=== PATIENT | male | born 1935 | race Caucasian/White ===

== ENCOUNTER → 2017-06-12 | Outpatient (CLI) | payer MEDICARE, OTHER ==
[~2017-06-12] MED LIST: ALBU90OI INH; ALBU90OI6 INH; ALLERCLEAR; ASPI325 PO; ASPI325B PO; ASPI81EC; Acidophilus La100 GM PO; BETA1; Bactrim Ds Tab1 EACH PO; CARV6.25 PO; CEPH500 PO; CITA20 PO; CLOP75 PO; CYCL10 PO; FISH1000 PO; FLUO10; FLUO10 PO; FLUO20; FOLI1 PO; GABA100 PO; GUAI600T33 PO; HYDACE5 PO; HYDHCL25 PO; LEVCAR25ER PO; LEVFLO500 PO; LEVO750 PO; MELO7.5 PO; METO50ER PO; METTREX2.5 PO; MOEHYD7.5; MOEX15 PO; NICO21TP TOP; NITR.6SL SL; OMEP20ER; OMEP20ER PO; OXYC5 PO; PANT20 PO; PRED20 PO; Percocet 5-3251 EACH PO; Prednisone20 MG PO; Prilosec Otc20 MG PO; SIMV40; SULTRIDS PO; TAMS.4ER; TAMS.4ER PO; VITAMIN D-32000 UNIT PO
[2017-06-12 13:15] LABS: BASOPHILS ABSOLUTE AUTO 0.08 K/mm3 (0.00-0.23); BASOPHILS PERCENT AUTO 1 % (0-2); EOSINOPHILS ABSOLUTE AUTO 0.08 K/mm3 (0.00-0.68); EOSINOPHILS PERCENT AUTO 1 % (0-6); Hemoglobin 16.1 g/dL (13.5-17.5); IMMATURE GRAN ABSOLUTE AUTO 0.06 K/mm3 (0.00-0.10); IMMATURE GRAN PERCENT AUTO 1 % (0-1); LYMPHOCYTES ABSOLUTE AUTO 2.01 K/mm3 (0.84-5.20); LYMPHOCYTES PERCENT AUTO 19 % (21-46); MONOCYTES ABSOLUTE AUTO 0.68 K/mm3 (0.16-1.47); MONOCYTES PERCENT AUTO 6 % (4-13); Mean Corpuscular HGB Conc 33.5 g/dL (31.5-36.5); Mean Corpuscular Volume 89 fL (80-100); Mean Platelet Volume 11.3 fL (9.1-12.4); NEUTROPHILS ABSOLUTE AUTO 7.83 K/mm3 (1.96-9.15); NEUTROPHILS PERCENT AUTO 73 % (41-73); Platelet Count 255 K/mm3 (150-400); RDW Coefficient Variation 14.1 % (11.7-14.2); RDW Standard Deviation 45.5 fL (35.1-46.3); Red Blood Cell Count 5.37 M/mm3 (4.30-5.90); White Blood Cell Count 10.74 K/mm3 (4.00-11.30)
== END | disposition home or self-care (01) ==
LOC: LAB EV 13:05
PROVIDERS: Physician Assistant
DX: M79.675 Pain in left toe(s) (principal)
CPT/HCPCS: 84550; 85025; 85651

== ENCOUNTER 2017-08-07 22:35 | Emergency (ER) | payer MEDICARE, OTHER ==
[~2017-08-07] VITALS: Ht 172.7 cm; Wt 85.3 kg
[~2017-08-07 22:35] MED LIST changes: -ALBU90OI INH; -CITA20 PO; -LEVO750 PO; -Prednisone20 MG PO
[2017-08-07] MEDS ORDERED: CITA20 PO (23:28)
[2017-08-07] MEDS ORDERED: GABA100 PO (23:28)
[2017-08-07] MEDS ORDERED: ALBU90OI INH (23:29)
[2018-05-02] MEDS ORDERED: Prednisone20 MG PO (16:35)
[2018-05-02] MEDS ORDERED: LEVO750 PO (16:35)
[2018-05-02] MEDS ORDERED: ALBU90OI INH (16:35)
== END 2017-08-07 23:50 | disposition home or self-care (01) ==
LOC: ER 22:35
DX: S01.01XA Laceration without foreign body of scalp, initial encounter (principal); F10.129 Alcohol abuse with intoxication, unspecified; Z23 Encounter for immunization; I25.2 Old myocardial infarction; I10 Essential (primary) hypertension; I25.10 Atherosclerotic heart disease of native coronary artery without angina pectoris; Z87.891 Personal history of nicotine dependence; Z79.899 Other long term (current) drug therapy; Z79.82 Long term (current) use of aspirin; W18.30XA Fall on same level, unspecified, initial encounter
CPT/HCPCS: 12002; 70450; 72125; 90471; 90714; 93005; 93010; 99284

== ENCOUNTER 2017-08-20 15:06 | Emergency (ER) | payer MEDICARE, OTHER ==
[~2017-08-20] VITALS: Ht 172.7 cm; Wt 83.9 kg
[~2017-08-20 15:06] MED LIST changes: +ALBU90OI INH; +CITA20 PO
== END 2017-08-20 16:05 | disposition home or self-care (01) ==
LOC: ER 15:06
DX: S01.01XD Laceration without foreign body of scalp, subsequent encounter (principal); I25.2 Old myocardial infarction; I10 Essential (primary) hypertension; I25.10 Atherosclerotic heart disease of native coronary artery without angina pectoris; I73.9 Peripheral vascular disease, unspecified; Z88.5 Allergy status to narcotic agent; Z79.82 Long term (current) use of aspirin; Z79.899 Other long term (current) drug therapy; Z98.890 Other specified postprocedural states; Z87.891 Personal history of nicotine dependence
CPT/HCPCS: 99281

== ENCOUNTER → 2017-08-24 | Outpatient (CLI) | payer MEDICARE, OTHER | LOC: LAB 17:47 → LAB SHORT 17:47 | DX: R21 Rash and other nonspecific skin eruption (principal) | CPT/HCPCS: 87070; 87205 ==

== ENCOUNTER → 2018-09-26 | Outpatient (CLI) | payer MEDICARE, OTHER ==
[~2018-09-26] MED LIST changes: +LEVO750 PO; +Prednisone20 MG PO
[2018-09-26 16:34] LABS: BASOPHILS ABSOLUTE AUTO 0.05 K/mm3 (0.00-0.23); BASOPHILS PERCENT AUTO 0 % (0-2); EOSINOPHILS PERCENT AUTO 1 % (0-6); Hematocrit 51.6 % (37.0-53.0); IMMATURE GRAN ABSOLUTE AUTO 0.11 K/mm3 (0.00-0.10); IMMATURE GRAN PERCENT AUTO 1 % (0-1); LYMPHOCYTES ABSOLUTE AUTO 2.13 K/mm3 (0.84-5.20); LYMPHOCYTES PERCENT AUTO 16 % (21-46); MONOCYTES ABSOLUTE AUTO 1.28 K/mm3 (0.16-1.47); MONOCYTES PERCENT AUTO 10 % (4-13); Mean Corpuscular HGB 29.5 pg (26.0-34.0); Mean Corpuscular HGB Conc 32.9 g/dL (31.5-36.5); Mean Corpuscular Volume 90 fL (80-100); Mean Platelet Volume 10.7 fL (9.1-12.4); NEUTROPHILS ABSOLUTE AUTO 9.47 K/mm3 (1.96-9.15); NEUTROPHILS PERCENT AUTO 72 % (41-73); Platelet Count 282 K/mm3 (150-400); RDW Standard Deviation 59.8 fL (35.1-46.3); Red Blood Cell Count 5.76 M/mm3 (4.30-5.90); White Blood Cell Count 13.14 K/mm3 (4.00-11.30)
[2018-09-26 16:42] LABS: Alanine Aminotransfer (ALT/SGP 11 U/L (12-78); Albumin, Blood 3.7 g/dL (3.4-5.0); Albumin/Globulin Ratio 0.8 (0.8-1.8); Alk Phos 77 U/L (40-126); Anion Gap 10 mmol/L (6-16); Aspartate Aminotrans (AST/SGOT 16 U/L (12-37); Bilirubin, Total 1.3 mg/dL (0.1-1.0); Blood Urea Nitrogen 11 mg/dL (8-24); Bun/Creatinine Ratio 12.6 (12.0-20.0); CO2, Blood 29 mmol/L (21-32); Calcium, Blood 9.2 mg/dL (8.5-10.1); Chloride, Blood 99 mmol/L (98-108); Creatinine, Blood 0.87 mg/dL (0.60-1.20); Globulin, Blood 4.5 g/dL (2.2-4.0); Glomerular Filtration Rate >60 (60-); Glucose, Blood 109 mg/dL (70-99); Sodium, Blood 138 mmol/L (136-145); Total Protein, Blood 8.2 g/dL (6.4-8.2); Uric Acid, Blood 6.7 mg/dL (3.5-7.2)
== END | disposition home or self-care (01) ==
LOC: LAB SHORT 16:27 → LAB EV 16:27
PROVIDERS: General Practice
DX: M25.532 Pain in left wrist (principal)
CPT/HCPCS: 80053; 84550; 85025; 85651

== ENCOUNTER 2019-03-10 11:16 | Day surgery (SDC) | payer MEDICARE, OTHER ==
[~2019-03-10] VITALS: Ht 172.7 cm; Wt 86.0 kg
[~2019-03-10 11:16] MED LIST changes: -LEVCAR25ER PO; +Sinemet 25-1001 EACH PO
[2019-03-10] MEDS ORDERED: DULO30 PO (12:42)
[2019-03-10] MEDS ORDERED: ALLO100 PO (12:42)
[2019-03-10] MEDS ORDERED: TIOT18 INH (12:43)
--- NOTE | 2019-03-10 18:00 | NUR ---
SHIFT SUMMARY PT IS S/P PACEMAKER INSERTION TODAY. ARRIVED TO SURG FLOOR APPROX 1630. HAS NOT COMPLAINED OF PAIN SINCE. PT A/O X4, TOLERATING FOOD AND FLUIDS. TELE IN PLACE. SURGICAL SITE HAS GAUZE/TEGADERM DRESSING WHICH HAS MINIMAL DRAINAGE, IS CLEAN AND INTACT. REPORTS NO CHEST PAIN OR SOB.
--- NOTE | 2019-03-11 06:13 | NUR ---
SHIFT SUMMARY: [place] HAD A PACEMAKER PLACED YESTERDAY. PER THE PAPER DOCUMENTATION, THE LOW THRESHOLD IS SET AT 50 BPM. HE DENIES ANY CHEST PAIN/SOB. HE DID COMPLAIN OF 4/10 PAIN AT THE INSERTION SITE FOR WHICH TYLENOL WAS EFFECTIVE. HE IS ON TELEMETRY. CHEST X-RAY COMPLETED THIS MORNING. HE IS ABLE TO MAKE HIS NEEDS KNOWN. HE AMBULATES WITH STANDBY ASSIST. 20 G IN L AC PATENT. HE USES HIS CALL LIGHT APPROPRIATELY. HE IS LYING IN BED WITH HIS CALL LIGHT IN REACH.
[2019-03-11] MEDS ORDERED: WARF2.5 PO (12:33)
[2019-03-11] MEDS ORDERED: WARF5 PO (12:33)
--- NOTE | 2019-03-11 13:23 | NUR ---
DISCHARGE SUMMARY PT A&OX4, WALKED OFF FLOOR WITH , WITH ALL PERSONAL POSSESSIONS INCLUDING DC PACKET. DC INSTRUCTIONS PROVIDED. PT AND REP UNDERSTANDING THOSE INSTRUCTIONS INCLUDING NO TUB BATHS, OK TO SHOWER - DO NOT WET BANDAGE, PACEMAKER IMPLANT PT INSTRUCTIONS: NO LIFTING ARM OVERHEAD, WEAR SLING AT ALL TIMES, NWB, NO DRIVING/WORKING, FU APPTS, RESTART COUMADIN ON THURSDAY (3 DAYS). IV DC'D.
== END 2019-03-11 12:54 | disposition home or self-care (01) ==
LOC: MHTC 11:16 → SURS 14:03 → MHTC 03-11 12:54
DX: I49.5 Sick sinus syndrome (principal); I48.91 Unspecified atrial fibrillation; J44.9 Chronic obstructive pulmonary disease, unspecified; I10 Essential (primary) hypertension; G20 Parkinson's disease; I73.9 Peripheral vascular disease, unspecified; I25.10 Atherosclerotic heart disease of native coronary artery without angina pectoris; E78.00 Pure hypercholesterolemia, unspecified; Z79.899 Other long term (current) drug therapy; Z95.5 Presence of coronary angioplasty implant and graft; Z88.3 Allergy status to other anti-infective agents; Z88.5 Allergy status to narcotic agent; Z79.01 Long term (current) use of anticoagulants; Z87.891 Personal history of nicotine dependence
CPT/HCPCS: 33207; 71045; 71046; 94640; 94760; 99152; 99153; A9270; C1786; C1898; J0690; J1644; J2250; J3010; J7040

== ENCOUNTER 2020-04-04 06:27 | Day surgery (SDC) | payer MEDICARE, OTHER ==
[~2020-04-04] VITALS: Ht 172.7 cm; Wt 91.0 kg
[~2020-04-04 06:27] MED LIST changes: +ALLO100 PO; +AMLO5 PO; +ASPI81CH PO; +CARBLEV250 PO; +DULO30 PO; +FISH OIL 1,2001 EAC7 PO; +ISOSORBIDE MONO30 MG PO; +Nitrostat0.3 MG SL; +TIOT18 INH; +WARF2.5 PO; +WARF5 PO
[2020-04-04] MEDS ORDERED: CARBIDOPA-LEVO1 EA21 PO (07:24)
[2020-04-04] MEDS ORDERED: CARBIDOPA-LEVO1 EA17 PO (07:26)
[2020-04-04] MEDS ORDERED: ATOR20 PO (07:28)
[2020-04-04] MEDS ORDERED: TIOT18 INH (07:29)
--- NOTE | 2020-04-04 10:49 | NUR ---
patient returned to recovery room from field laborer. A&O. Right radial site soft and nontender with wrist board in place. patient eating breakfast with minimal assist from .
--- NOTE | 2020-04-04 12:30 | NUR ---
REMAINDER 8 CC AIR REMOVED FROM TR BAND BY Alok THOMAS RN. NO BLEEDING AT SITE. TR BAND TO ROOM AIR.
--- NOTE | 2020-04-04 13:26 | NUR ---
PATIENT DRESSED WITH ASSISTENCE AND TWO PERSON TRANSFERR TO WHEELCHAIR.
--- NOTE | 2020-04-04 14:11 | NUR ---
PATIENT DICHARGED HOME IN CARE OF . A&OJerome CROCKER RADIAL SITE TR BAND REMOVED SITE SOFT AND NONTENDER. CLOTH DOT DRESSING PLACED TO RADIAL SITE. IV DECED WITH CATHETER INTACT. PATIENT AND VERBALIZED UNDERSTANDING OF SITE CARE AND PRECAUTIONS, WILL ALL DOCTOR IF ANY QUESTION UPON ARRIVING HOME. DR HUNTER OFFICE WILL CALL FOR FOLLOW UP APPOINTMENT. MEDICATION CHANGE REVIEWED WITH . PATIENT DISCHARGED VIA WHEELCHAIR BY SELF, DRIVING
== END 2020-04-04 14:10 | disposition home or self-care (01) ==
LOC: MHTC 06:27
PROC: B201YZZ Plain Radiography of Multiple Coronary Arteries using Other Contrast (ICD-10-PCS; principal; 2020-04-04)
PROC: 4A023N7 Measurement of Cardiac Sampling and Pressure, Left Heart, Percutaneous Approach (ICD-10-PCS; principal; 2020-04-04)
DX: I25.10 Atherosclerotic heart disease of native coronary artery without angina pectoris (principal); I10 Essential (primary) hypertension; Z88.8 Allergy status to other drugs, medicaments and biological substances; Z95.5 Presence of coronary angioplasty implant and graft; Z87.891 Personal history of nicotine dependence; E78.00 Pure hypercholesterolemia, unspecified; J44.9 Chronic obstructive pulmonary disease, unspecified; G20 Parkinson's disease; Z79.01 Long term (current) use of anticoagulants; Z79.899 Other long term (current) drug therapy; Z88.5 Allergy status to narcotic agent
CPT/HCPCS: 76937; 85347; 93454; 93571; 93572; 99152; 99153; C1725; C1769; C1887; C1894; J1644; J2250; J3010; J7030; J7050; Q9967

== ENCOUNTER 2020-06-12 05:58 | Day surgery (SDC) | payer MEDICARE, OTHER ==
[~2020-06-12] VITALS: Ht 170.2 cm; Wt 93.2 kg
[~2020-06-12 05:58] MED LIST changes: +ATOR20 PO; +CARBIDOPA-LEVO1 EA17 PO; +CARBIDOPA-LEVO1 EA21 PO; -Sinemet 25-1001 EACH PO; -VITAMIN D-32000 UNIT PO; +Vitamin D2000 UNIT PO
--- NOTE | 2020-06-12 10:49 | NUR ---
PATIENT RETURNED FROM THE CATHLAB, UPON UNDRAPPING IN THE CATHLAB, PATIENT WAS NOTED TO HAVE WELPS TO HIS ENTIRE UPPER BODY/TRUNK/GROIN AREAS. NO C/O ITICHING. NO WHEEZING NOTED. CONTINUED NASAL CANNULA AT 3LPM. SATURATION 98-100%. VVS. NS INFUSING AT 125 ML/HR. PATIENT PLACED ON THE MONITOR AND HOB FLAT, BED IN REVERSE TRENDELENBERG. AWARE OF WELPS AND SOLUCORTEF AND BENADRYL WAS GIVEN BEFORE LEAVING THE CATHLAB. SBAR TO DARNELL MONTANO AND CONTINUED TO MONITOR PATIENT FROM THE LAB INTO RECOVERY.
--- NOTE | 2020-06-12 11:15 | NUR ---
AT THE BEDSIDE, UPDATED BY RN
--- NOTE | 2020-06-12 11:34 | NUR ---
PATIENT C/O LEFT HIP SORENESS. STATED THAT THIS IS HIS BAD HIP AND ALWAYS HURTS HIM. PATIENT ADJUSTED FOR COMFORT BUT UNABLE TO SIT UP AT THIS TIME.
--- NOTE | 2020-06-12 12:07 | NUR ---
URINAL PLACED PER PATIENT REQUEST, LUNCH TRAY ORDERED. WELPS ON BODY ARE LIGHTING IN COLOR AND SIZE. STILL PRESENT BUT DIMINISHING.
--- NOTE | 2020-06-12 12:21 | NUR ---
LUNCH SERVED. PATIENT SITTING 45 DEGREES UP, DUE TO BAD HIP. AND STILL TRYING TO USE URINAL. AT THE BEDSIDE.
--- NOTE | 2020-06-12 12:30 | NUR ---
PATIENT TR BAND IN PLACE AND ATTEMPTED TO RELEASE A SMALL AMOUNT OF AIR, PUNCTURE SITE IS HIGH TOWARDS THE THUMB. BLEEDING NOTED. REPLACED ALL THE AIR PACK IN THE TR BAND.
--- NOTE | 2020-06-12 13:03 | NUR ---
PATIENT ASSISTED UP TO THE RECLINER CHAIR TO EASE THE PAIN IN HIS HIP. GAIT UPSTEADY. TWO PERSON ASSIST. REMAINS AT THE BEDSIDE.
--- NOTE | 2020-06-12 13:08 | NUR ---
BEGAN RELEASING AIR FROM THE TR BAND, NO BLEEDING NOTED.
--- NOTE | 2020-06-12 13:14 | NUR ---
DR. QUINTEROS AT THE BEDSIDE. SPOKE WITH AND PATIENT.
--- NOTE | 2020-06-12 13:29 | NUR ---
CONTINUE TO REMOVED AIR FROM THE TR BAND. NO BLEEDING NOTED.
--- NOTE | 2020-06-12 14:03 | NUR ---
TR BAND FULLY DEFLATED FROM LEFT WRIST, REMAINS ON WITH ARM BOARD FOR SUPPORT. PT APPEARS DROWSY, RESPONDS TO VERBAL STIMULI, DENIES ANY NEEDS AT THIS TIME. AT BEDSIDE. PT UP IN RECLINER CHAIR, LEFT GROIN SITE SOFT NON TENDER WITH NO ACTIVE BLEEDING OR OOZING NOTED. WILL CONTINUE TO MONITOR.
--- NOTE | 2020-06-12 15:18 | NUR ---
PATIENT UP AND DRESSED WITH ASSIST. PIV REMOVED FROM THE RIGHT AC AND PRESSURE DRESSING APPLIED. CATHETER TIP INTACT. PATIENT OFF THE MONITOR. TR BAND REMOVED, LEFT RADIAL SITE CLEANED AND DRIED. CLOTH DOT APPLIED. WHITE BOARD APPLIED TO PREVENT PATIENT FROM BENDING WRIST. REVIEWED ALL DISCAHRGE INSTRUCTIONS WITH PATIENT AND . PATIENT VERY MIDDLETOWN AND UNABLE TOHEAR MUCH OF THE INSTRUCTIONS. COPIES GIVEN OF ALL INSTRUCTIONS. WILL REMOVE DRESSING TO BOTH GROINS TOMORROW AND SHOWER ONLY FOR THE NEXT WEEK. WILL MONITOR SITES (GROIN AND WRIST) FOR ANY SIGNS OF INFECTION AND REPORT ANY CHANGES TO DR. SIMS OFFICE. THE PATIENT IS DUE TO RETURN FOR A FOLLOW UP PROCEDURE ON 2020 @ 4164. VERBALIZES UNDERSTANDING AND NO FURTHER QUESTIONS. WELPS ALMOST FADED. WILL CONTINUE TO MONITOR AND REPORT ANY CHANGES TO MD'S OFFICE. PATIENT TO WHEELCHAIR. ALL BELONGINGS GATHERED AND PATIENT WHEELCHAIRED TO THE CAR AND ASSISTED INTO THE CAR. DISCHARGED HOME.
[2020-06-25] MEDS ORDERED: MOEX15 PO (12:17)
[2020-06-25] MEDS ORDERED: AMLO5 PO (12:20)
== END 2020-06-12 14:00 | disposition home or self-care (01) ==
LOC: MHTC 05:58
DX: I70.213 Atherosclerosis of native arteries of extremities with intermittent claudication, bilateral legs (principal); I25.10 Atherosclerotic heart disease of native coronary artery without angina pectoris; I48.91 Unspecified atrial fibrillation; I10 Essential (primary) hypertension; J44.9 Chronic obstructive pulmonary disease, unspecified; G47.30 Sleep apnea, unspecified; Z88.5 Allergy status to narcotic agent; Z88.8 Allergy status to other drugs, medicaments and biological substances; Z91.041 Radiographic dye allergy status; Z79.899 Other long term (current) drug therapy; Z20.822 Contact with and (suspected) exposure to COVID-19
CPT/HCPCS: 37220; 37221; 37223; 75625; 75716; 75774; 76937; 99152; 99153; C1725; C1760; C1769; C1874; C1876; C1887; C1894; J1200; J1644; J1720; J2250; J3010; J7030; J7050; Q9967

== ENCOUNTER 2020-06-26 08:23 | Day surgery (SDC) | payer MEDICARE, OTHER ==
[~2020-06-26] VITALS: Ht 172.7 cm; Wt 91.0 kg
[2020-06-26 09:08] LABS: Hematocrit 42.6 % (37.0-53.0); Hemoglobin 13.6 g/dL (13.5-17.5); Mean Corpuscular HGB 29.6 pg (26.0-34.0); Mean Corpuscular HGB Conc 31.9 g/dL (31.5-36.5); Mean Corpuscular Volume 93 fL (80-100); Mean Platelet Volume 10.2 fL (9.1-12.4); Platelet Count 416 K/mm3 (150-400); RDW Coefficient Variation 14.6 % (11.7-14.2); RDW Standard Deviation 49.7 fL (35.1-46.3); Red Blood Cell Count 4.59 M/mm3 (4.30-5.90); White Blood Cell Count 12.37 K/mm3 (4.00-11.30)
[2020-06-26] MEDS ORDERED: NITR.4SL SL (09:14)
[2020-06-26] MEDS ORDERED: ISOSORBIDE MONO30 MG PO (09:18)
[2020-06-26] MEDS ORDERED: SPIRIVA RESPIMAT4 G3 INH (09:19)
[2020-06-26] MEDS ORDERED: ALLERCLEAR10 MG PO (09:20)
[2020-06-26 09:24] LABS: International Normalized Ratio 1.67; Prothrombin Time Results 17.4 Sec (9.7-11.5)
[2020-06-26 09:27] LABS: Anion Gap 7 mmol/L (6-16); Blood Urea Nitrogen 21 mg/dL (8-24); Bun/Creatinine Ratio 22.6 (12.0-20.0); CO2, Blood 24 mmol/L (21-32); Calcium, Blood 9.4 mg/dL (8.5-10.1); Chloride, Blood 110 mmol/L (98-108); Creatinine, Blood 0.93 mg/dL (0.60-1.20); Glomerular Filtration Rate >60 (60-); Glucose, Blood 94 mg/dL (70-99); Potassium, Blood 4.3 mmol/L (3.5-5.5); Sodium, Blood 141 mmol/L (136-145)
--- NOTE | 2020-06-26 13:17 | NUR ---
PT RETURNED TO RECOVERY ROOM IN BED. RIGHT PEDAL SITE SOFT NON-TENDER WITH NO HEMATOMA, NO BLEEDING AND INTACT DRESSING WITH SUBHASH PATCH IN PLACE. PT EATING LUNCH. SCATTERED HIVES NOTED BILAT HIPS; PT'S SP02 97% ON RA WITH NO RESPIRATORY DISTRESS. CALL LIGHT IN REACH.
--- NOTE | 2020-06-26 13:59 | NUR ---
PT'S IN ROOM. PT DRINKING COFFEE AND ATE LUNCH.
--- NOTE | 2020-06-26 14:38 | NUR ---
NO CHANGES TO R PEDAL SITE. DR QUINTEROS IN ROOM TO SEE PT AND HIS . DISCHARGE INSTRUCTIONS REVIEWED ALL QUESTIONS ANSWERED. 20 G IV REMOVED FROM RIGHT AC WITH INTACT CANNULA. PT ESCORTED OUT VIA WHEELCHAIR ESCORT.
== END 2020-06-26 14:45 | disposition home or self-care (01) ==
LOC: MHTC 08:23
PROVIDERS: Radiology Diagnostic Radiology
DX: I70.213 Atherosclerosis of native arteries of extremities with intermittent claudication, bilateral legs (principal); G20 Parkinson's disease; I10 Essential (primary) hypertension; J44.9 Chronic obstructive pulmonary disease, unspecified; Z88.5 Allergy status to narcotic agent; Z88.8 Allergy status to other drugs, medicaments and biological substances; Z79.01 Long term (current) use of anticoagulants
CPT/HCPCS: 37227; 75710; 75774; 76937; 80048; 85027; 85610; 99152; 99153; C1714; C1725; C1769; C1874; C1876; C1887; C1894; C2623; J1200; J1644; J1720; J2250; J3010; J7030; J7050; Q9967

== ENCOUNTER 2020-08-14 10:16 | Day surgery (SDC) | payer MEDICARE, OTHER ==
[~2020-08-14] VITALS: Ht 172.7 cm; Wt 86.8 kg
[~2020-08-14 10:16] MED LIST changes: +ALLERCLEAR10 MG PO; +NITR.4SL SL; +SPIRIVA RESPIMAT4 G3 INH
--- NOTE | 2020-08-14 15:31 | NUR ---
PATIENT WITH AT THE BEDSIDE. DR. QUINTEROS AT THE BEDSIDE TO SPEAK WITH THE PATIENT AND . UPDATED ON ALL RESULTS OF THE PROCEDURE AND SPOKE ABOUT A WALKING PROGRAM. INCREASING 10 FEET PER DAY.
--- NOTE | 2020-08-14 15:32 | NUR ---
1440 PATIENT RETURNED TO THE CATHLAB FROM PROCEDURE. RIGHT GROIN CHECKED WITH TWO RN'S, DRESSING CDI. MONITOR APPLIED. CALL LIGHT IN REACH. CALLED AND ON HER WAY BACK TO THE BEDSIDE.
--- NOTE | 2020-08-14 16:30 | NUR ---
1630 PATIENT SAT UP ON THE SIDE OF THE BED. PIV REMOVED. PRESSURE DRESSING APPLIED. MONITOR OFF AFTER LAST NIBP TAKEN. AT THE BEDSIDE AND ASSISTED PATIENT DRESSING. ALL BELONGINGS GATHERED AND RETAINED BY PATIENT.
--- NOTE | 2020-08-14 16:49 | NUR ---
REVIEWED DISCHARGE INSTRUCTIONS AND ANSWERED ALL QUESTIONS FROM PATIENT AND . COPIES OF INSTRUCTIONS GIVEN. PATIENT WALKING IN THE RECOVERY ROOM. TO THE RESTROOM AND THEN GROIN SITE CHECKED AGAIN. SOFT, NO HEMATOMA, NO BLEEDING NOTED. DISCHARGE HOME VIA WHEELCHAIR. DRIVING.
== END 2020-08-14 16:53 | disposition home or self-care (01) ==
LOC: MHTC 10:16
DX: I70.213 Atherosclerosis of native arteries of extremities with intermittent claudication, bilateral legs (principal); I25.10 Atherosclerotic heart disease of native coronary artery without angina pectoris; I48.91 Unspecified atrial fibrillation; J44.9 Chronic obstructive pulmonary disease, unspecified; E78.00 Pure hypercholesterolemia, unspecified; I10 Essential (primary) hypertension; F17.200 Nicotine dependence, unspecified, uncomplicated; G20 Parkinson's disease; Z79.01 Long term (current) use of anticoagulants
CPT/HCPCS: 75716; 75774; 99152; 99153; C1757; C1760; C1769; C1887; C1894; C2623; C9764; J1200; J1644; J1720; J2250; J3010; J7030; J7050; Q9967

== ENCOUNTER → 2021-01-15 | Outpatient (CLI) | payer MEDICARE, OTHER | LOC: LAB 11:55 → LAB SHORT 11:55 | DX: D48.5 Neoplasm of uncertain behavior of skin (principal); L30.8 Other specified dermatitis; D71 Functional disorders of polymorphonuclear neutrophils; Z88.5 Allergy status to narcotic agent; Z88.8 Allergy status to other drugs, medicaments and biological substances | CPT/HCPCS: 88304; 88312 ==

== ENCOUNTER → 2021-02-07 | Outpatient (CLI) | payer MEDICARE, OTHER ==
[2021-02-07 19:27] LABS: BASOPHILS ABSOLUTE AUTO 0.05 K/mm3 (0.00-0.23); BASOPHILS PERCENT AUTO 1 % (0-2); EOSINOPHILS ABSOLUTE AUTO 0.35 K/mm3 (0.00-0.68); EOSINOPHILS PERCENT AUTO 4 % (0-6); Hematocrit 45.9 % (37.0-53.0); Hemoglobin 15.2 g/dL (13.5-17.5); IMMATURE GRAN ABSOLUTE AUTO 0.04 K/mm3 (0.00-0.10); IMMATURE GRAN PERCENT AUTO 1 % (0-1); LYMPHOCYTES ABSOLUTE AUTO 2.33 K/mm3 (0.84-5.20); LYMPHOCYTES PERCENT AUTO 27 % (21-46); MONOCYTES PERCENT AUTO 11 % (4-13); Mean Corpuscular HGB 30.6 pg (26.0-34.0); Mean Corpuscular HGB Conc 33.1 g/dL (31.5-36.5); Mean Corpuscular Volume 93 fL (80-100); NEUTROPHILS ABSOLUTE AUTO 4.89 K/mm3 (1.96-9.15); NEUTROPHILS PERCENT AUTO 57 % (41-73); Platelet Count 258 K/mm3 (150-400); RDW Coefficient Variation 13.6 % (11.7-14.2); RDW Standard Deviation 45.9 fL (35.1-46.3); Red Blood Cell Count 4.96 M/mm3 (4.30-5.90); White Blood Cell Count 8.56 K/mm3 (4.00-11.30)
[2021-02-07 19:32] LABS: Anion Gap 12 mmol/L (6-16); Blood Urea Nitrogen 20 mg/dL (8-24); Bun/Creatinine Ratio 17.9 (12.0-20.0); CO2, Blood 26 mmol/L (21-32); Calcium, Blood 8.8 mg/dL (8.5-10.1); Chloride, Blood 105 mmol/L (98-108); Creatinine, Blood 1.12 mg/dL (0.60-1.20); Glomerular Filtration Rate >60 (60-); Glucose, Blood 90 mg/dL (70-99); Sodium, Blood 143 mmol/L (136-145)
== END | disposition home or self-care (01) ==
LOC: LAB SHORT 19:23
PROVIDERS: Physician Assistant Surgical
DX: R53.83 Other fatigue (principal)
CPT/HCPCS: 80048; 85025

== ENCOUNTER 2021-03-18 18:08 | Observation (INO) | payer MEDICARE, OTHER ==
[~2021-03-18] VITALS: Ht 172.7 cm; Wt 88.4 kg
[~2021-03-18 18:08] MED LIST changes: -ALLO100 PO; -ATOR20 PO; -CARBIDOPA-LEVO1 EA21 PO; -DULO30 PO; -FISH OIL 1,2001 EAC7 PO; -Prilosec Otc20 MG PO; -Vitamin D2000 UNIT PO; -WARF5 PO
[2021-03-18] MEDS ORDERED: HYDR1TAB94 PO (18:26)
[2021-03-18 19:02] LABS: BASOPHILS ABSOLUTE AUTO 0.05 K/mm3 (0.00-0.23); BASOPHILS PERCENT AUTO 0 % (0-2); EOSINOPHILS ABSOLUTE AUTO 0.24 K/mm3 (0.00-0.68); EOSINOPHILS PERCENT AUTO 2 % (0-6); Hematocrit 47.4 % (37.0-53.0); Hemoglobin 15.3 g/dL (13.5-17.5); IMMATURE GRAN PERCENT AUTO 1 % (0-1); LYMPHOCYTES ABSOLUTE AUTO 1.97 K/mm3 (0.84-5.20); LYMPHOCYTES PERCENT AUTO 14 % (21-46); MONOCYTES ABSOLUTE AUTO 1.43 K/mm3 (0.16-1.47); MONOCYTES PERCENT AUTO 10 % (4-13); Mean Corpuscular HGB 30.1 pg (26.0-34.0); Mean Corpuscular HGB Conc 32.3 g/dL (31.5-36.5); Mean Corpuscular Volume 93 fL (80-100); Mean Platelet Volume 11.3 fL (9.1-12.4); NEUTROPHILS ABSOLUTE AUTO 10.38 K/mm3 (1.96-9.15); NEUTROPHILS PERCENT AUTO 73 % (41-73); Platelet Count 252 K/mm3 (150-400); RDW Coefficient Variation 13.9 % (11.7-14.2); RDW Standard Deviation 48.1 fL (35.1-46.3); Red Blood Cell Count 5.08 M/mm3 (4.30-5.90); White Blood Cell Count 14.17 K/mm3 (4.00-11.30)
[2021-03-18 19:10] LABS: Alanine Aminotransfer (ALT/SGP 20 U/L (12-78); Albumin, Blood 3.3 g/dL (3.4-5.0); Albumin/Globulin Ratio 0.9 (0.8-1.8); Alk Phos 78 U/L (50-136); Anion Gap 2 mmol/L (6-16); Aspartate Aminotrans (AST/SGOT 18 U/L (12-37); Bilirubin, Total 0.6 mg/dL (0.1-1.0); Blood Urea Nitrogen 25 mg/dL (8-24); Bun/Creatinine Ratio 19.4 (12.0-20.0); CO2, Blood 29 mmol/L (21-32); Calcium, Blood 9.1 mg/dL (8.5-10.1); Chloride, Blood 109 mmol/L (98-108); Creatinine, Blood 1.29 mg/dL (0.60-1.20); Globulin, Blood 3.8 g/dL (2.2-4.0); Glomerular Filtration Rate 53 (60-); Glucose, Blood 97 mg/dL (70-99); Potassium, Blood 4.4 mmol/L (3.5-5.5); Sodium, Blood 140 mmol/L (136-145); Total Protein, Blood 7.1 g/dL (6.4-8.2); Troponin I <0.015 ng/mL (0.000-0.040)
[2021-03-18 19:25] LABS: International Normalized Ratio 2.8; Prothrombin Time Results 27.5 Sec (9.7-11.5)
[2021-03-18] MEDS ORDERED: MOEX15 PO (20:19)
[2021-03-18] MEDS ORDERED: DULO60 PO (20:20)
[2021-03-18] MEDS ORDERED: ATOR40TA PO (20:21)
[2021-03-18] MEDS ORDERED: WARF5 PO (20:22)
[2021-03-18] MEDS ORDERED: ALLO100 PO (20:31)
[2021-03-18] MEDS ORDERED: CARBIDOPA-LEVO1 EA21 PO (20:33)
[2021-03-18] MEDS ORDERED: CARBIDOPA-LEVO1 EA17 PO (20:34)
[2021-03-18] MEDS ORDERED: Prilosec Otc20 MG PO (20:50)
[2021-03-18] MEDS ORDERED: Lopressor 50 mg50 MG PO (20:51)
[2021-03-18] MEDS ORDERED: Vitamin D2000 UNIT PO (20:52)
[2021-03-18] MEDS ORDERED: FISH OIL 1,2001 EAC7 PO (20:53)
[2021-03-18] MEDS ORDERED: PRESERVISION A1 EAC1 PO (20:54)
[2021-03-18] MEDS ORDERED: CENTRUM SILVER1 EAC2 PO (20:54)
[2021-03-18] MEDS ORDERED: ZYRTEC10 M2 PO (20:56)
[2021-03-19 06:20] LABS: BASOPHILS ABSOLUTE AUTO 0.04 K/mm3 (0.00-0.23); BASOPHILS PERCENT AUTO 1 % (0-2); EOSINOPHILS ABSOLUTE AUTO 0.32 K/mm3 (0.00-0.68); EOSINOPHILS PERCENT AUTO 4 % (0-6); Hematocrit 44.5 % (37.0-53.0); Hemoglobin 14.6 g/dL (13.5-17.5); IMMATURE GRAN ABSOLUTE AUTO 0.07 K/mm3 (0.00-0.10); IMMATURE GRAN PERCENT AUTO 1 % (0-1); LYMPHOCYTES ABSOLUTE AUTO 2.18 K/mm3 (0.84-5.20); LYMPHOCYTES PERCENT AUTO 28 % (21-46); MONOCYTES ABSOLUTE AUTO 0.86 K/mm3 (0.16-1.47); MONOCYTES PERCENT AUTO 11 % (4-13); Mean Corpuscular HGB 30.4 pg (26.0-34.0); Mean Corpuscular HGB Conc 32.8 g/dL (31.5-36.5); Mean Corpuscular Volume 93 fL (80-100); NEUTROPHILS ABSOLUTE AUTO 4.42 K/mm3 (1.96-9.15); NEUTROPHILS PERCENT AUTO 56 % (41-73); Platelet Count 219 K/mm3 (150-400); RDW Coefficient Variation 14.2 % (11.7-14.2); RDW Standard Deviation 47.8 fL (35.1-46.3); Red Blood Cell Count 4.81 M/mm3 (4.30-5.90); White Blood Cell Count 7.89 K/mm3 (4.00-11.30)
[2021-03-19 06:36] LABS: International Normalized Ratio 2.39
[2021-03-19 06:40] LABS: Prothrombin Time Results 23.7 Sec (9.7-11.5)
[2021-03-19 06:44] LABS: Anion Gap 7 mmol/L (6-16); Blood Urea Nitrogen 20 mg/dL (8-24); Bun/Creatinine Ratio 22.4 (12.0-20.0); CO2, Blood 25 mmol/L (21-32); Calcium, Blood 9.2 mg/dL (8.5-10.1); Chloride, Blood 110 mmol/L (98-108); Creatinine, Blood 0.89 mg/dL (0.60-1.20); Glomerular Filtration Rate >60 (60-); Glucose, Blood 104 mg/dL (70-99); Potassium, Blood 3.4 mmol/L (3.5-5.5); Sodium, Blood 142 mmol/L (136-145)
[2021-03-19 06:45] LABS: Magnesium, Blood 0.8 mg/dL (1.6-2.4)
[2021-03-20 06:04] LABS: BASOPHILS ABSOLUTE AUTO 0.05 K/mm3 (0.00-0.23); BASOPHILS PERCENT AUTO 0 % (0-2); EOSINOPHILS ABSOLUTE AUTO 0.27 K/mm3 (0.00-0.68); EOSINOPHILS PERCENT AUTO 2 % (0-6); Hematocrit 46.1 % (37.0-53.0); Hemoglobin 15.2 g/dL (13.5-17.5); IMMATURE GRAN PERCENT AUTO 1 % (0-1); LYMPHOCYTES ABSOLUTE AUTO 2.01 K/mm3 (0.84-5.20); LYMPHOCYTES PERCENT AUTO 12 % (21-46); MONOCYTES ABSOLUTE AUTO 1.45 K/mm3 (0.16-1.47); MONOCYTES PERCENT AUTO 9 % (4-13); Mean Corpuscular HGB 30.2 pg (26.0-34.0); Mean Corpuscular Volume 92 fL (80-100); NEUTROPHILS PERCENT AUTO 77 % (41-73); Platelet Count 253 K/mm3 (150-400); RDW Coefficient Variation 14.1 % (11.7-14.2); RDW Standard Deviation 47.6 fL (35.1-46.3); Red Blood Cell Count 5.04 M/mm3 (4.30-5.90); White Blood Cell Count 16.58 K/mm3 (4.00-11.30)
[2021-03-20 06:18] LABS: International Normalized Ratio 2.29; Prothrombin Time Results 22.8 Sec (9.7-11.5)
[2021-03-20 06:23] LABS: Alanine Aminotransfer (ALT/SGP 10 U/L (12-78); Albumin, Blood 2.9 g/dL (3.4-5.0); Albumin/Globulin Ratio 0.7 (0.8-1.8); Alk Phos 70 U/L (50-136); Anion Gap 4 mmol/L (6-16); Aspartate Aminotrans (AST/SGOT 14 U/L (12-37); Bilirubin, Total 1.3 mg/dL (0.1-1.0); Blood Urea Nitrogen 17 mg/dL (8-24); Bun/Creatinine Ratio 19.7 (12.0-20.0); CO2, Blood 25 mmol/L (21-32); Calcium, Blood 9.3 mg/dL (8.5-10.1); Chloride, Blood 107 mmol/L (98-108); Creatinine, Blood 0.86 mg/dL (0.60-1.20); Globulin, Blood 3.9 g/dL (2.2-4.0); Glomerular Filtration Rate >60 (60-); Glucose, Blood 120 mg/dL (70-99); Phosphorus, Blood 2.1 mg/dL (2.5-4.9); Sodium, Blood 136 mmol/L (136-145); Total Protein, Blood 6.8 g/dL (6.4-8.2)
[2021-03-20] MEDS ORDERED: MAGNESIUM OXID500 MG PO (15:59)
== END 2021-03-20 16:30 | disposition home or self-care (01) ==
LOC: ER 18:08 → MEDS 18:09
PROVIDERS: Hospitalist; Student in an Organized Health Care Education/Training Program; ADMIT Internal Medicine
DX: R07.89 Other chest pain (principal); I25.10 Atherosclerotic heart disease of native coronary artery without angina pectoris; I73.9 Peripheral vascular disease, unspecified; I25.2 Old myocardial infarction; I10 Essential (primary) hypertension; J44.9 Chronic obstructive pulmonary disease, unspecified; E78.00 Pure hypercholesterolemia, unspecified; I48.91 Unspecified atrial fibrillation; I49.5 Sick sinus syndrome; F17.200 Nicotine dependence, unspecified, uncomplicated; I25.5 Ischemic cardiomyopathy; I35.0 Nonrheumatic aortic (valve) stenosis; G20 Parkinson's disease; N40.1 Benign prostatic hyperplasia with lower urinary tract symptoms; N13.8 Other obstructive and reflux uropathy; Z88.5 Allergy status to narcotic agent; E83.42 Hypomagnesemia; Z88.8 Allergy status to other drugs, medicaments and biological substances; Z91.041 Radiographic dye allergy status; Z79.01 Long term (current) use of anticoagulants; Z86.73 Personal history of transient ischemic attack (TIA), and cerebral infarction without residual deficits; Z95.5 Presence of coronary angioplasty implant and graft; Z95.0 Presence of cardiac pacemaker; Z23 Encounter for immunization
CPT/HCPCS: 36415; 78452; 80048; 80053; 83735; 84100; 84484; 85025; 85610; 90686; 93005; 93010; 93017; 99285-25; A9270; A9500; G0008; G0378; J0706; J2785; J3475

== ENCOUNTER 2021-05-09 15:47 | Inpatient (IN) | payer MEDICARE, OTHER ==
[~2021-05-09] VITALS: Ht 172.7 cm; Wt 87.1 kg
[~2021-05-09 15:47] MED LIST changes: +ALLO100 PO; +ATOR40TA PO; +CARBIDOPA-LEVO1 EA21 PO; +CENTRUM SILVER1 EAC2 PO; +DULO60 PO; +FISH OIL 1,2001 EAC7 PO; +HYDR1TAB94 PO; +Lopressor 50 mg50 MG PO; +MAGNESIUM OXID500 MG PO; +PRESERVISION A1 EAC1 PO; +Prilosec Otc20 MG PO; +Vitamin D2000 UNIT PO; +WARF5 PO; +ZYRTEC10 M2 PO
[2021-05-09 17:15] LABS: BASOPHILS ABSOLUTE AUTO 0.06 K/mm3 (0.00-0.23); BASOPHILS PERCENT AUTO 0 % (0-2); EOSINOPHILS ABSOLUTE AUTO 0.07 K/mm3 (0.00-0.68); EOSINOPHILS PERCENT AUTO 0 % (0-6); Hematocrit 50.8 % (37.0-53.0); Hemoglobin 16.9 g/dL (13.5-17.5); IMMATURE GRAN ABSOLUTE AUTO 0.14 K/mm3 (0.00-0.10); IMMATURE GRAN PERCENT AUTO 1 % (0-1); LYMPHOCYTES ABSOLUTE AUTO 3.43 K/mm3 (0.84-5.20); LYMPHOCYTES PERCENT AUTO 16 % (21-46); MONOCYTES ABSOLUTE AUTO 1.59 K/mm3 (0.16-1.47); MONOCYTES PERCENT AUTO 8 % (4-13); Mean Corpuscular HGB 29.4 pg (26.0-34.0); Mean Corpuscular HGB Conc 33.3 g/dL (31.5-36.5); Mean Corpuscular Volume 89 fL (80-100); Mean Platelet Volume 11.7 fL (9.1-12.4); NEUTROPHILS ABSOLUTE AUTO 16.04 K/mm3 (1.96-9.15); NEUTROPHILS PERCENT AUTO 75 % (41-73); Platelet Count 324 K/mm3 (150-400); RDW Coefficient Variation 14.6 % (11.7-14.2); RDW Standard Deviation 47.1 fL (35.1-46.3); Red Blood Cell Count 5.74 M/mm3 (4.30-5.90); White Blood Cell Count 21.33 K/mm3 (4.00-11.30)
[2021-05-09 17:54] LABS: Alanine Aminotransfer (ALT/SGP 21 U/L (12-78); Albumin, Blood 3.7 g/dL (3.4-5.0); Albumin/Globulin Ratio 0.9 (0.8-1.8); Alk Phos 84 U/L (50-136); Anion Gap 10 mmol/L (6-16); Aspartate Aminotrans (AST/SGOT 35 U/L (12-37); Bilirubin, Total 1.1 mg/dL (0.1-1.0); Blood Urea Nitrogen 73 mg/dL (8-24); Bun/Creatinine Ratio 35.1 (12.0-20.0); CO2, Blood 18 mmol/L (21-32); Calcium, Blood 9.3 mg/dL (8.5-10.1); Chloride, Blood 108 mmol/L (98-108); Creatinine, Blood 2.08 mg/dL (0.60-1.20); Globulin, Blood 4.2 g/dL (2.2-4.0); Glomerular Filtration Rate 30 (60-); Glucose, Blood 152 mg/dL (70-99); Potassium, Blood 5.4 mmol/L (3.5-5.5); Sodium, Blood 136 mmol/L (136-145); Total Protein, Blood 7.9 g/dL (6.4-8.2); Troponin I <0.015 ng/mL (0.000-0.040)
[2021-05-09 19:07] LABS: Influenza A, PCR NEGATIVE (NEGATIVE); Influenza B, PCR NEGATIVE (NEGATIVE); Resp Syncytial Virus, PCR NEGATIVE (NEGATIVE); SARS-Cov-2 (COVID-19) PCR, MMC NEGATIVE (NEGATIVE)
[2021-05-09 22:33] LABS: International Normalized Ratio 1.69; Prothrombin Time Results 17.1 Sec (9.7-11.5)
[2021-05-10 03:09] LABS: BASOPHILS ABSOLUTE AUTO 0.05 K/mm3 (0.00-0.23); BASOPHILS PERCENT AUTO 0 % (0-2); EOSINOPHILS ABSOLUTE AUTO 0.02 K/mm3 (0.00-0.68); EOSINOPHILS PERCENT AUTO 0 % (0-6); Hematocrit 43.4 % (37.0-53.0); Hemoglobin 14.6 g/dL (13.5-17.5); IMMATURE GRAN ABSOLUTE AUTO 0.11 K/mm3 (0.00-0.10); IMMATURE GRAN PERCENT AUTO 1 % (0-1); LYMPHOCYTES ABSOLUTE AUTO 2.85 K/mm3 (0.84-5.20); LYMPHOCYTES PERCENT AUTO 14 % (21-46); MONOCYTES ABSOLUTE AUTO 1.58 K/mm3 (0.16-1.47); MONOCYTES PERCENT AUTO 8 % (4-13); Mean Corpuscular HGB 29.3 pg (26.0-34.0); Mean Corpuscular HGB Conc 33.6 g/dL (31.5-36.5); Mean Corpuscular Volume 87 fL (80-100); Mean Platelet Volume 10.7 fL (9.1-12.4); NEUTROPHILS ABSOLUTE AUTO 16.42 K/mm3 (1.96-9.15); NEUTROPHILS PERCENT AUTO 78 % (41-73); Platelet Count 220 K/mm3 (150-400); RDW Coefficient Variation 14.5 % (11.7-14.2); RDW Standard Deviation 46.5 fL (35.1-46.3); Red Blood Cell Count 4.99 M/mm3 (4.30-5.90); White Blood Cell Count 21.03 K/mm3 (4.00-11.30)
[2021-05-10 03:29] LABS: Bun/Creatinine Ratio 36.6 (12.0-20.0); Calcium, Blood 8.8 mg/dL (8.5-10.1); Creatinine, Blood 2.13 mg/dL (0.60-1.20); Potassium, Blood 4.7 mmol/L (3.5-5.5); Troponin I 0.028 ng/mL (0.000-0.040)
[2021-05-10 03:31] LABS: Magnesium, Blood 1.1 mg/dL (1.6-2.4)
--- NOTE | 2021-05-10 04:39 | NUR ---
PATIENT IS ALERT AND ORIENTED X2, STABLE VITAL SIGNS, NO ACUTE CHANGES. PATIENT WAS ADMITTED TO MEDICAL FLOOR FOR INTRAABDOMINAL FOREIGN BODY. SURGERY CONSULT CALLED. PT SAC AND [place], PAIN DENIES PAIN OR SOB. CALL LIGHT WITHING REACH, BED TO THE LOWEST POSITION.
--- NOTE | 2021-05-10 07:46 | NUR ---
UPDATE: SPOKE WITH DR. MARINELLI THIS AM VIA TELEPHONE. CONFIRMED TOTAL OF 5,000 MG IVPB MAG TO BE INFUSED.
--- NOTE | 2021-05-10 11:36 | NUR ---
PATIENT ALERT AND ORIENTED X4. UPON WAKING THIS AM VERY DROWSY AND CONFUSED. AFTER 10-15 MIN PATIENT MORE AWAKE AND ALERT. MODOC, HEARING AIDS IN. ABLE TO MOVE ALL EXTREMITIES. USES CANE AT BASELINE. CLAIMS TO HAVE NUMBNESS AT TIMES IN HANDS. LUNGS SOUNDING CLEAR AND DIM IN BASES. DENIES SOB. NO TELE, BP AND HR STABLE. HISTORY OF PACER PLACEMENT TO LEFT CHEST WALL. NO SIGNS OF EDEMA. TENDERNESS TO LOWER ABDOMEN. PER PATIENT HE FEELS LIKE HIS ABDOMEN IS "SWELLING". ATTENDS IN PLACE. USING URINAL. AT TIMES INCONTINENT. USING BEDSIDE COMMODE WITH 1 PERSON ASSIST. CHEST XRAY THIS AM. MAG BEING REPLACED WELL AT NS INFUSING. SKIN C/D/I. NPO AT THIS TIME WITH MINIMAL ICE CHIPS. CALL LIGHT IN REACH. SLEEPING AT THIS TIME. VITAL SIGNS STABLE. WILL CONTINUE TO MONITOR.
--- NOTE | 2021-05-10 14:17 | NUR ---
Surgical site prepped with 2% Chlorhexidine cloth wipe. History, Chart, Medications and Allergies reviewed before start of procedure.Lungs clear T/O to Auscultation. Patient confirms NPO status and agrees with scheduled surgery. hearing aides, glasses and dentures all palced in pacu.
--- NOTE | 2021-05-10 14:37 | NUR ---
PATIENT TAKEN TO DAY SURGERY AT 1340ISH. SPOKE WITH ON PHONE AROUND 1420 AND GAVE UPDATE. MAG STILL INFUSING ON TRANSFER TO SURGERY.
--- NOTE | 2021-05-10 15:21 | NUR ---
05/10/21 1521 Norma Benoit PATIENT ON SCHEDULED ZOSYN 2.25GM. LAST GIVEN 05/10 @ 8787.
[2021-05-10 15:31] LABS: Source, Urine Clean Catch
[2021-05-10 15:51] LABS: Appearance, Urine Clear (Clear); Bilirubin, Urine Neg (Neg); Blood, Urine Neg (Neg); Color, Urine Yellow (P-Yellow); Glucose Qualitative, Urine Neg (Neg); Ketones, Urine Neg (Neg); Leukocyte Esterase, Urine Neg (Neg); Nitrite, Urine Neg (Neg); Protein, Urine 1+ (Neg); Specific Gravity, Urine 1.015 (1.003-1.022); Urobilinogen, Urine NORM (Normal)
--- NOTE | 2021-05-10 17:48 | NUR ---
PATIENT STILL IN RECOVERY. PATIENT WILL BE TRANSFERING TO SURGICAL FLOOR ROOM 218. WILL CALL RN AND REPORT OFF. PATIENT BELONGINGS BROUGHT TO ROOM.
--- NOTE | 2021-05-10 19:01 | NUR ---
MD AT BEDSIDE, FLUSHED NG TUBE, ADJUSTED PLACEMENT AT NARES, PULLED BACK SLIGHTLY, RETURN NOTED TO SUCTION TUBING. ORDERED NEB TREATMENT. ADMINISTERED.
--- NOTE | 2021-05-11 00:21 | NUR ---
PT ARRIVED ON THE FLOOR IN ROOM 218 FROM PACU AT 1930 VIA STRETCHER, ASSISTED IN GOING TO BED WHERE HE REMAINS AND IS RESTING QUIETLY. ALERT AND ORIENTED, CONDITION IS STABLE. ASSISTED WITH HIS CARE AND ADLS, MEDICATED INDICATED, DIRECTOR CLINICAL APPLICATIONS DILAUDID SET UP INDICATED, EDUCATED ON HOW TO USE TO OBTAIN MED FOR PAIN RELIEF. PT GIVEN HIS CALL BUTTON AND ENCOURAGED TO CALL FOR HELP WHEN ASSISTANCE IS NEEDED HE IS MONITORED.
[2021-05-11 04:04] LABS: BASOPHILS ABSOLUTE AUTO 0.03 K/mm3 (0.00-0.23); BASOPHILS PERCENT AUTO 0 % (0-2); EOSINOPHILS ABSOLUTE AUTO 0.01 K/mm3 (0.00-0.68); EOSINOPHILS PERCENT AUTO 0 % (0-6); Hematocrit 40.9 % (37.0-53.0); Hemoglobin 13.2 g/dL (13.5-17.5); IMMATURE GRAN PERCENT AUTO 1 % (0-1); LYMPHOCYTES ABSOLUTE AUTO 1.44 K/mm3 (0.84-5.20); LYMPHOCYTES PERCENT AUTO 7 % (21-46); MONOCYTES ABSOLUTE AUTO 1.12 K/mm3 (0.16-1.47); MONOCYTES PERCENT AUTO 6 % (4-13); Mean Corpuscular HGB 29.1 pg (26.0-34.0); Mean Corpuscular HGB Conc 32.3 g/dL (31.5-36.5); Mean Corpuscular Volume 90 fL (80-100); Mean Platelet Volume 11.1 fL (9.1-12.4); NEUTROPHILS ABSOLUTE AUTO 16.72 K/mm3 (1.96-9.15); NEUTROPHILS PERCENT AUTO 86 % (41-73); Platelet Count 188 K/mm3 (150-400); RDW Coefficient Variation 14.9 % (11.7-14.2); RDW Standard Deviation 49.6 fL (35.1-46.3); Red Blood Cell Count 4.53 M/mm3 (4.30-5.90); White Blood Cell Count 19.42 K/mm3 (4.00-11.30)
[2021-05-11 04:50] LABS: Albumin, Blood 2.2 g/dL (3.4-5.0); Anion Gap 13 mmol/L (6-16); Blood Urea Nitrogen 52 mg/dL (8-24); Bun/Creatinine Ratio 33.8 (12.0-20.0); CO2, Blood 14 mmol/L (21-32); Calcium, Blood 8.2 mg/dL (8.5-10.1); Chloride, Blood 113 mmol/L (98-108); Creatinine, Blood 1.54 mg/dL (0.60-1.20); Glomerular Filtration Rate 43 (60-); Glucose, Blood 152 mg/dL (70-99); Phosphorus, Blood 3.1 mg/dL (2.5-4.9); Potassium, Blood 4.5 mmol/L (3.5-5.5); Sodium, Blood 140 mmol/L (136-145)
--- NOTE | 2021-05-11 18:10 | NUR ---
SHIFT SUMMARY: PATIENT ALERT AND ORIENTED X 4, PLEASANT AFFECT. PT IN TODAY AND PT. DID GET UP AND MOVE TO CHAIR WITH ASSIST, TOLERATE WELL. SAT UP IN CHAIR X 2 HOUR AND BACK TO BED. TAKING FEW ICE CHIPS, LIP BALM GIVEN. DENIES NAUSEA. DENIES FLATUS. STATES CASE THERAPIST EFFECTIVE FOR PAIN CONTROL. O2 ON AT 2L FOR SAT RANGING FROM 92%-96%. VSS. IN TO SEE PATIENT TODAY.
--- NOTE | 2021-05-12 05:50 | NUR ---
Pt in bed and is pleasantly confused. Alert and awake, repositioned in bed for comfort, reoriented to the [facility] to increase awareness and promote safety. He is medicated as indicated, dressing to midline is dry and intact, abd is firm. Pt was given is call light, his DINKEY OPERATOR SLATE button and encouraged to use them as indicated and when assistance is needed as he is monitored.
--- NOTE | 2021-05-12 13:02 | NUR ---
LEO CATHETER REMOVED WITHOUT PROBLEM. URINAL AND CALL LIGHT WITHIN REACH. BED ALARM ON TO ALERT STAFF OF PT. RISING. VERY CONFUSED THIS A.M., BELIEVED TO BE ON A BOAT AND THEN AN AIRPLANE. BECAME VERY AGITATED WHEN HE BELIEVED HIS ABDUCTED. CALMED WHEN TALK TO ON PHONE. REPROGRAPHICS ASSOCIATE DC'D THIS A.M. PER DR. MARINELLI ORDERS. AT THIS TIME PT. IS ALERT AND ORIENTED. STATES HE IS NO LONGER SEEING DOGS AND RATS. PLEASANT AFFECT.
--- NOTE | 2021-05-12 14:28 | NUR ---
IN AND OUT OF CONFUSION AT TIMES. ASKING "IS HARJIT IN THERE?"POINTING AT WINDOW. GENTLE REMINDER TO PATIENT THAT HE IS IN HOSPITAL AND HARJIT IS AT HOME AND PATIENT STATES "OH". BED BATH GIVEN AND DUCOLOX SUPP. ORDERED.
--- NOTE | 2021-05-12 14:30 | NUR ---
PT. TO ROOM 220 AT 1415. AWAKE, ALERT AND ORIENTED TO PERSON, PLACE. DAUGHTER, WHO IS PT. POA, IS IN ROOM WITH PT. ONLY C/O PAIN WITH TRANSFER FROM [facility] TO BED. VOICES NO COMPLAINTS AT THIS TIME.
--- NOTE | 2021-05-12 16:04 | NUR ---
Pt. very agitated, acutely. Attempt to leave and yelling "i know this is a scam, ill get my patent lawyer", pointing to wall and states "theres my ". Assist up to chair with multiple attempt to leave. Verbal validation somewhat helpful, however acute severe agitation arises, and at this time son and showed up to room. Continues to be agitated, son helpful. New order recieved for Seraquel. At this time family in room to de-escalate patient. Patient has not void since celeste out at 1300. States he "doesnt have to pee" yet.
--- NOTE | 2021-05-12 18:16 | NUR ---
PT. DENIES PAIN. DENIES NEED TO VOID AT THIS TIME. CONFUSED AND STATES, "WHERE THE HELL AM I? " TOLD HE IS AT HOSPITAL AND STATES "YOUR ALL DAMN LIARS". CALM REASSURANCE GIVEN. SOMEWHAT HELPFUL PT. HAS STOPPED EXIT SEEKING, HOWEVER WONDERING WHERE HIS CAR IS PARKED.
--- NOTE | 2021-05-12 18:35 | NUR ---
PT. YELLING OUT, "I HAVE TO GO TO THE BATHROOM". ASSIST 2 BSC AND PT. DID HAVE MEDIUM AMOUNT OF LOOSE STOOL, SOFT AND MUCOUSY. DID NOT VOID AT THIS TIME, STATES "I DONT HAVE TO PEE RIGHT NOW" URINAL IS AT BEDSIDE. IVF INFUSING PER ORDER, PT. GIVEN OCCASIONAL ICE CHIP. CONTINUES TO DENY PAIN OR NAUSEA. NO FACIAL EXPRESSION OF ANY DISCOMFORT. AT THIS TIME IS WATCHING T.V AND TALKING TO SELF. BED ALARM ON TO ALERT STAFF OF PT. RISING. CALL LIGHT IS WITHIN REACH.
[2021-05-12 19:54] LABS: PCO2 Arterial 28.2 mmHg (35-45); PO2 Arterial 75.7 mmHg (80-100)
[2021-05-12 19:56] LABS: Anion Gap 8 mmol/L (6-16); Blood Urea Nitrogen 25 mg/dL (8-24); Bun/Creatinine Ratio 23.6 (12.0-20.0); CO2, Blood 19 mmol/L (21-32); Calcium, Blood 9.1 mg/dL (8.5-10.1); Chloride, Blood 113 mmol/L (98-108); Creatinine, Blood 1.06 mg/dL (0.60-1.20); Glomerular Filtration Rate >60 (60-); Glucose, Blood 84 mg/dL (70-99); Potassium, Blood 4.1 mmol/L (3.5-5.5); Sodium, Blood 140 mmol/L (136-145)
--- NOTE | 2021-05-12 22:19 | NUR ---
Pt A/Ox1. Trying to get out of bed x2 at start of shift. Seeing imaginary images in room. HR [address] Puentes made aware. Orders for Narcan x1.Narcan given see EMAR. STAT lactic acid and ABG. Abnormal ABG and Dr. Puentes is aware. Pt pulling at lines and still trying to get out of bed. Orders for catalina vest for patient safety. Cont. oxygen monitoring on patient. Pt NPO sips with meds, but patient is so confused at this time that RN was unable to give PM meds. WCTM
--- NOTE | 2021-05-12 22:44 | NUR ---
Pt confused and agitated. Ativan given per PRN order. Patient now resting comfortably in bed. Coal in place. Mouth swabbed at this time. WCTM
--- NOTE | 2021-05-13 02:21 | NUR ---
Pt resting in bed at 0200. Jb vest restraint removed at this time. TM
--- NOTE | 2021-05-13 04:07 | NUR ---
Pt + for crackles, RR 21-23. Dr. Rodriguez covering and made aware. Orders for x1 dose of IV lasix. Will administer to pt. See EMAR. WCTM
[2021-05-13 04:41] LABS: BASOPHILS ABSOLUTE AUTO 0.02 K/mm3 (0.00-0.23); BASOPHILS PERCENT AUTO 0 % (0-2); EOSINOPHILS ABSOLUTE AUTO 0.41 K/mm3 (0.00-0.68); EOSINOPHILS PERCENT AUTO 4 % (0-6); Hematocrit 36.2 % (37.0-53.0); Hemoglobin 11.9 g/dL (13.5-17.5); IMMATURE GRAN ABSOLUTE AUTO 0.04 K/mm3 (0.00-0.10); IMMATURE GRAN PERCENT AUTO 0 % (0-1); LYMPHOCYTES ABSOLUTE AUTO 1.74 K/mm3 (0.84-5.20); LYMPHOCYTES PERCENT AUTO 17 % (21-46); MONOCYTES ABSOLUTE AUTO 0.75 K/mm3 (0.16-1.47); MONOCYTES PERCENT AUTO 7 % (4-13); Mean Corpuscular HGB 29.3 pg (26.0-34.0); Mean Corpuscular HGB Conc 32.9 g/dL (31.5-36.5); Mean Corpuscular Volume 89 fL (80-100); Mean Platelet Volume 11.6 fL (9.1-12.4); NEUTROPHILS ABSOLUTE AUTO 7.31 K/mm3 (1.96-9.15); NEUTROPHILS PERCENT AUTO 71 % (41-73); Platelet Count 189 K/mm3 (150-400); RDW Coefficient Variation 14.6 % (11.7-14.2); RDW Standard Deviation 47.7 fL (35.1-46.3); Red Blood Cell Count 4.06 M/mm3 (4.30-5.90); White Blood Cell Count 10.27 K/mm3 (4.00-11.30)
--- NOTE | 2021-05-13 04:49 | NUR ---
Pt still A/Ox1, but following commands. Condom catheter placed on patient. IV lasix x1 given. Pt urinated on command 300cc's of dark yellow urine at this time. WCTM
--- NOTE | 2021-05-13 10:57 | NUR ---
PT TURNED AND BED BATH COMPLETED. PT ABLE TO TELL ME HIS FULL NAME AND , WHERE HE LIVES AND THE CORRECT YEAR. PT DID NOT RECALL THAT HE HAD HAD SURGERY. PT FOLLOWING COMMANDS AND RESPONDING TO QUESTIONS, MAKING NEEDS KNOWN. DIET ADVANCED TO CLEAR LIQ. PT SAT UP TO 90% AND GIVEN SMALL SIP OF WATER, BUT COUGHED AND REPORTED THAT IT WAS HARD TO SWALLOW. WILL HOLD MEDS AND LIQUIDS AT THIS TIME AND REPORT THIS TO HOSPITALIST. BED ALARM ON, WILL CTM.
--- NOTE | 2021-05-13 16:48 | NUR ---
Initial Assessment with [facility] Community Horseback Riding Instructor 1. Who did you speak with? Spoke with patient 2. What is the patient's prior level of functions? Patient lives independently with his and dog Jackie. Patient still drives, but provides transportation most of the time. Patient has a one story home with stairs in the front entrance and the garage. The garage has handles to assist with stair balance. Patient has a rollator, cane, scooter, and CPAP. 3. What is the patient's current living situation? Patient lives independently with his . 4. Is the patient and/or family able to provide transportation to and from doctor's appointments and mixing picker tender prescriptions? Yes, patient drives and able to provide transportation to appointments and pharmacy ([facility]). 5. Does patient still drive? Yes 6. POA/PCP/NOK: PCP-Dr. Whitney/NOK: Elizabeth 7. ANTICIPATED DISCHARGE NEEDS/GOALS: TBD 8. List barriers to discharge: None on this date 9. Discharge Plan: TBD 10. PCP Follow up appointment: Will be scheduled within seven calendar days of discharge. 11. OTHER COMMENTS: None
--- NOTE | 2021-05-13 18:03 | NUR ---
SUMMARY: NO ACUTE CHANGE TODAY. VSS, ALERT AND ORIENTED X3 TODAY. OCCASIONAL FORGETFULNESS BUT EASILY REORIENTED. PT DID NOT ATTEMPT OOB AND USED CALL LIGHT. SURGICAL SITE WNL. PT WORKED WITH THERAPY, IS A 1 ASSIST WITH FWW. PT PASSING FLATUS TONIGHT, HAS DENIED PAIN. PT CONTINUING TO HAVE TROUBLE SWALLOWING, PT REPORTS THIS DIFFICULTLY HAS OFTEN HAPPENED AT HOME. PT KEPT NPO TODAY AND SPEECH THERAPY ORDERED, ALTHOUGH THERAPIST UNABLE TO SEE PT, DR KANG MADE AWARE. FLUIDS INFUSING. BED ALARM ON FOR SAFETY, WILL REPORT TO NOC RN.
--- NOTE | 2021-05-13 19:28 | NUR ---
All night medications held dt aspiration risk. Orders for speach eval, but they have not seen the patient yet. Patient resting comfortably in bed at this time. Bed alarm on for patient safety. TM
--- NOTE | 2021-05-14 08:05 | NUR ---
SPEECH THERAPY IS AT THE BEDSIDE. ASSISTED PT TO SIT UP FOR ST EVAL.
--- NOTE | 2021-05-14 09:59 | NUR ---
MESSAGE LEFT FOR DR. KANG TO CALL BACK. PLAN TO REQUEST ADJUSTMENTS TO PT'S MEDICATIONS SINCE HE WILL NEED TO REMAIN NPO.
--- NOTE | 2021-05-14 11:00 | NUR ---
UPDATES PROVIDED TO PT'S FAMILY. DR. KANG NOTIFIED THAT PT'S FAMILY REQUESTED AN UPDATE FROM HIM. DR. MARINELLI ALSO NOTIFIED THAT FAMILY WILL BE HERE DURING VISITING HOURS AND HAS REQUESTED AND UPDATE. PT'S FAMILY EDUCATED TO CHOOSE ONE DESIGNATED PERSON TO OBTAIN UPDATES DAILY RATHER THAN MULTIPLE CALLS TO STAFF. WILL CONTINUE TO MONITOR AND PROVIDE EDUCATION/UPDATES TO FAMILY NEEDED.
--- NOTE | 2021-05-14 11:02 | NUR ---
DR. PEARL PATEL. DISCUSSED NEEDED CHANGES TO MEDICATION SINCE PT IS NPO. ALSO DISCUSSED BRADYCARDIA, CARRIE THOMPSON'D. WILL CONTINUE TO MONITOR.
--- NOTE | 2021-05-14 11:57 | NUR ---
BRADYCARDIA DISCUSSED BRADYCARDIA WITH DR. KANG, PT'S HR HAS OCCASIONALLY DROPPED INTO THE 40'S WHILE AT REST. PT HAS CONTINUOUS OX IN PLACE. OK TO PLACE TELE PER DR. KANG.
--- NOTE | 2021-05-14 15:26 | NUR ---
DR. KANG ROUNDING DR. KANG NOTIFIED OF ALFUTTER, HR AVERAGING 55. HE WAS ALSO NOTIFIED THAT PT IS COUGHING UP SCANT AMOUNTS OF BLOOD THIS AFTERNOON. DR. KANG ORDERED A PET SCAN; THIS RN WAS INFORMED BY RADIOLOGY THAT PET SCANS CANNOT BE DONE AT THE HOSPITAL AND ARE OUTPATIENT SCANS ONLY; DR. KANG NOTIFIED. DR. KANG SPEAKING WITH FAMILY AT THIS TIME. WILL CONTINUE TO MONITOR.
--- NOTE | 2021-05-14 17:21 | NUR ---
DR. MARINELLI ROUNDED THIS EVENING AND DISCUSSED POSSIBLE NEED FOR IV NUTRITION OR DOBHOFF PLACEMENT. DIETARY CONSULT PLACED PER DR. MARINELLI.
--- NOTE | 2021-05-14 18:14 | NUR ---
SHIFT SUMMARY PT HAS BEEN A&O T/O THE SHIFT. PATHOLOGY REPORT CAME BACK TODAY AND DR. KANG AND DR. MARINELLI DISCUSSED THE RESULTS WITH THE PT. DIETARY CONSULT PLACED FOR POSSIBLE IV NUTRITION. PT HAS BEEN A 1 ASSIST WHEN OOB BUT IS WEAK, HE USES A WALKER AND GAIT BELT. PT IS USING THE URINAL BUT DID SIT ON THE BSC X1. PT REPORTS HE IS UNSURE IF HE HAS PASSED FLATUS. PT PLACED ON TELE FOR LOW HR. VSS EXCEPT FOR BRADYCARDIA. WILL MONITOR UNTIL REPORT TO ONCOMING RN.
--- NOTE | 2021-05-15 05:33 | NUR ---
ALERT AND ORIENTED X'S 4. ATIVAN 0.5MG GIVEN IV DUE TO ANXIETY/RESTLESSNESS, SOME EFFECT. PATIENT COUGHING UP CLEAR SPUTUMN. CALLS FOR ASSISTANCE WITHOUT DIFFICULTY, VOIDS IN URINAL WITH ASSISTANCE FROM STAFF. ABDOMEN DISTENDED, BOWEL SOUNDS PRESENT IN ALL FOUR QAUDRANTS. EDWINA DRESSING INTACT TO ABDOMEN WITH OLD RED DRAINAGE NOTED TO DRESSING. HOB ELEVATED 30 DEGREES, SAFETY MAINTAINED, CALL SMITH IN REACH.
--- NOTE | 2021-05-15 18:20 | NUR ---
Pt is A&O, but forgetful at times. VSS on RA, titrated to RA today. Multiple BMs today. Up to commode several times. Walked in cain with PT. ADJUSTER LEADER did a re-eval and pt did not pass swallow eval. There will be a barium study done tomorrow in the AM. Pt needs PICC for intrlipids, but no one was available to put one in today. Clinimix was started at 80ml/hr. Pt remains NPO.
[2021-05-16 04:26] LABS: Magnesium, Blood 1.1 mg/dL (1.6-2.4); Phosphorus, Blood 2.9 mg/dL (2.5-4.9); Triglycerides 103 mg/dL (30-160)
--- NOTE | 2021-05-16 06:16 | NUR ---
ALERT, ABLE TO VERBALIZE NEEDS. 1 ASSIST TO BEDSIDE COMMODE. ATIVAN 0.5MG IV GIVEN DUE TO ANXIETY, PATIENT STATED YOUR NOT TOLD EVERYDAY YOU HAVE CANCER, EFFECTIVE RELIEF. SLEPT IN LONG INTERVALS THROUGH NIGHT. MOUTH CARE PROVIED THIS AM. EDWINA DRESSING TO ABDOMEN INTACT. RECEIVED CRITICAL LAB VALUE, MAG LEVEL 1.1, RECEIVED ORDERS TO GIVE MAG 2 GM X'S 1. SAFETY MAINTAINED, CALL SMITH IN REACH.
--- NOTE | 2021-05-16 18:15 | NUR ---
PICC PLACED IN RT BICEP TODAY. BARIUM SWALLOW WAS COMPLETED, PT REMAINS NPO HE WAS NOTED TO ASPIRATING ALL SUBSTANCES DURING SWALLOW STUDY. MIDLINE INCISION REMAINS COVERED WITH PICCO DRESSING, NO NEW DRAINAGE NOTED TO DRESSING. NEW ORDER WAS PLACED FOR ALBUTEROL MDI, PT FREE OF WHEEZING OR SOB BUT STATED THAT HE WOULD LIKE IT AVAILABLE JUST IN CASE. DR MARINELLI HAS BEEN IN TO SEE PT THIS EVENING AND THIS AM
[2021-05-17 06:21] LABS: Anion Gap 7 mmol/L (6-16); Blood Urea Nitrogen 15 mg/dL (8-24); Bun/Creatinine Ratio 19.2 (12.0-20.0); CO2, Blood 27 mmol/L (21-32); Chloride, Blood 104 mmol/L (98-108); Creatinine, Blood 0.78 mg/dL (0.60-1.20); Glomerular Filtration Rate >60 (60-); Glucose, Blood 107 mg/dL (70-99); Magnesium, Blood 1.8 mg/dL (1.6-2.4); Phosphorus, Blood 3.2 mg/dL (2.5-4.9); Potassium, Blood 3.6 mmol/L (3.5-5.5); Sodium, Blood 138 mmol/L (136-145)
--- NOTE | 2021-05-17 06:32 | NUR ---
ALERT AND ORIENTED X'S 4. ABLE TO VERBALIZED NEEDS. DRESSSING INTACT TO ABDOMEN. TYLENOL 650MG SUPP GIVEN DUE TO C/O ABDOMINAL PAIN, EFFECTIVE RELIEF. SLEPT WELL THROUGH NIGHT. SAFETY MAINTAINED, CALL SMITH IN REACH.
--- NOTE | 2021-05-17 16:06 | NUR ---
SHIFT SUMMARY: POD 7 RIGHT DEYSI COLECTOMY PATIENT IS ALERT AND ORIENTED X2-3 INTERMITTENTLY. HX OF DEMENTIA AND PARKINSON'S. THOUGH PATIENT IS INCREASING IN MEMORY THIS SHIFT WITH SUBLINGUAL CARBADOPA/LEVADOPA. PAIN IS MANAGED WITH SUPPOSITORY TYLENOL. PATIENT IS A SBA WITH FWW AND GAIT BELT. BED AND CHAIR ALARMS ARE IN PLACE A PRECAUTIONARY. PICC LINE IS INFUSING CLINDAMIX AND FAT. CALLS APPROPRIATELY. CALL LIGHT WITHIN REACH. HE IS VOIDING AND IS PASSING FLATUS. ATTENDS HAS BEEN CHANGED PRN. THE PLAN IS TO KEEP PATIENT NPO AND HAVE ANOTHER SWALLOW EVAL ON THURSDAY TO POSSIBLY HAVE HIM GET PO INTAKE.
--- NOTE | 2021-05-18 05:45 | NUR ---
ALERT X'S 4, SLEPT WELL THROUGH NIGHT. CLINIMIX INFUSING. SAFETY MAINTAINED, CALL SMITH IN REACH.
[2021-05-18 06:49] LABS: BASOPHILS ABSOLUTE AUTO 0.03 K/mm3 (0.00-0.23); BASOPHILS PERCENT AUTO 0 % (0-2); EOSINOPHILS ABSOLUTE AUTO 0.58 K/mm3 (0.00-0.68); EOSINOPHILS PERCENT AUTO 5 % (0-6); Hematocrit 37.2 % (37.0-53.0); IMMATURE GRAN ABSOLUTE AUTO 0.12 K/mm3 (0.00-0.10); IMMATURE GRAN PERCENT AUTO 1 % (0-1); LYMPHOCYTES ABSOLUTE AUTO 1.93 K/mm3 (0.84-5.20); LYMPHOCYTES PERCENT AUTO 15 % (21-46); MONOCYTES ABSOLUTE AUTO 1.09 K/mm3 (0.16-1.47); MONOCYTES PERCENT AUTO 9 % (4-13); Mean Corpuscular HGB 28.8 pg (26.0-34.0); Mean Corpuscular HGB Conc 32.3 g/dL (31.5-36.5); Mean Corpuscular Volume 89 fL (80-100); Mean Platelet Volume 10.6 fL (9.1-12.4); NEUTROPHILS ABSOLUTE AUTO 8.83 K/mm3 (1.96-9.15); NEUTROPHILS PERCENT AUTO 70 % (41-73); Platelet Count 296 K/mm3 (150-400); RDW Coefficient Variation 14.1 % (11.7-14.2); Red Blood Cell Count 4.17 M/mm3 (4.30-5.90); White Blood Cell Count 12.58 K/mm3 (4.00-11.30)
[2021-05-18 07:10] LABS: Anion Gap 7 mmol/L (6-16); Blood Urea Nitrogen 19 mg/dL (8-24); Bun/Creatinine Ratio 24.6 (12.0-20.0); CO2, Blood 27 mmol/L (21-32); Calcium, Blood 9.4 mg/dL (8.5-10.1); Chloride, Blood 104 mmol/L (98-108); Creatinine, Blood 0.77 mg/dL (0.60-1.20); Glomerular Filtration Rate >60 (60-); Glucose, Blood 102 mg/dL (70-99); Magnesium, Blood 1.6 mg/dL (1.6-2.4); Phosphorus, Blood 3.5 mg/dL (2.5-4.9); Potassium, Blood 3.7 mmol/L (3.5-5.5); Sodium, Blood 138 mmol/L (136-145)
--- NOTE | 2021-05-18 18:36 | NUR ---
SUMMARY: NO ACUTE CHANGE TODAY. VSS, A/O, [place]. PT HAD X2 EPISODES OF DIARRHEA. ABD IS SOFT, PT REPORTS GENERALIZED PAIN AND SORE JOINTS, NONE SURGICAL. EDWINA WNL.PT ABLE TO AMBULATE IN ROOM WITH THERAPY. EVALUATED BY ST, THEY RECOMMEND THAT PT STAY NPO. NO SAFETY CONCERNS, PT USES CALL LIGHT.
--- NOTE | 2021-05-18 23:16 | NUR ---
REPORTED BY TELE, PATIENT HAD 6 BEATS OF V TACH. NOTIFIED DR. URBAN.
--- NOTE | 2021-05-19 06:43 | NUR ---
ALERT AND ORIENTED X'S 4. NO FURTHER EPISODES OF V TACH REPORTED TO THIS NURSE. SLEPT WELL THROUGH NIGHT. COMPLAINED OF GENERALIZED DISCOMFORT, REPOSITIONED FOR COMFORT, EFFECTIVE RELIEF. CLINIMIX INFUSING. SAFETY MAINTAINED, CALL SMITH IN REACH.
[2021-05-19 07:20] LABS: BASOPHILS ABSOLUTE AUTO 0.04 K/mm3 (0.00-0.23); BASOPHILS PERCENT AUTO 0 % (0-2); EOSINOPHILS ABSOLUTE AUTO 0.57 K/mm3 (0.00-0.68); EOSINOPHILS PERCENT AUTO 5 % (0-6); Hematocrit 37.6 % (37.0-53.0); Hemoglobin 12.1 g/dL (13.5-17.5); IMMATURE GRAN ABSOLUTE AUTO 0.12 K/mm3 (0.00-0.10); IMMATURE GRAN PERCENT AUTO 1 % (0-1); LYMPHOCYTES ABSOLUTE AUTO 2.14 K/mm3 (0.84-5.20); LYMPHOCYTES PERCENT AUTO 18 % (21-46); MONOCYTES ABSOLUTE AUTO 1.07 K/mm3 (0.16-1.47); MONOCYTES PERCENT AUTO 9 % (4-13); Mean Corpuscular HGB 28.9 pg (26.0-34.0); Mean Corpuscular HGB Conc 32.2 g/dL (31.5-36.5); Mean Corpuscular Volume 90 fL (80-100); Mean Platelet Volume 11.2 fL (9.1-12.4); NEUTROPHILS ABSOLUTE AUTO 8.04 K/mm3 (1.96-9.15); NEUTROPHILS PERCENT AUTO 67 % (41-73); Platelet Count 318 K/mm3 (150-400); RDW Coefficient Variation 14.1 % (11.7-14.2); RDW Standard Deviation 46.5 fL (35.1-46.3); Red Blood Cell Count 4.18 M/mm3 (4.30-5.90); White Blood Cell Count 11.98 K/mm3 (4.00-11.30)
[2021-05-19 07:39] LABS: Anion Gap 6 mmol/L (6-16); Blood Urea Nitrogen 23 mg/dL (8-24); Bun/Creatinine Ratio 26.5 (12.0-20.0); CO2, Blood 26 mmol/L (21-32); Calcium, Blood 9.2 mg/dL (8.5-10.1); Chloride, Blood 105 mmol/L (98-108); Creatinine, Blood 0.87 mg/dL (0.60-1.20); Glomerular Filtration Rate >60 (60-); Glucose, Blood 101 mg/dL (70-99); Magnesium, Blood 1.8 mg/dL (1.6-2.4); Potassium, Blood 4.4 mmol/L (3.5-5.5); Sodium, Blood 137 mmol/L (136-145)
--- NOTE | 2021-05-20 04:31 | NUR ---
SHIFT SUMMARY A/OX4. VITAL SIGNS STABLE. MIDLINE EDWINA IN PLACE, SCANT AMOUNT OF DRIED RED DRAINAGE X2, INTACT. PT REPORTS BEING UNABLE TO SLEEP THIS AM DUE TO ACID REFLUX, PT UP TO CHAIR TO TRY TO REDUCE AND STATES HE FEELS A LITTLE BETTER AT THIS TIME. NO PAIN THROUGHOUT SHIFT, WILL REPORT TO ONCOMING RN.
[2021-05-20 04:43] LABS: Albumin, Blood 2.1 g/dL (3.4-5.0); Anion Gap 8 mmol/L (6-16); Blood Urea Nitrogen 26 mg/dL (8-24); Bun/Creatinine Ratio 32.2 (12.0-20.0); CO2, Blood 25 mmol/L (21-32); Calcium, Blood 9.7 mg/dL (8.5-10.1); Chloride, Blood 103 mmol/L (98-108); Creatinine, Blood 0.81 mg/dL (0.60-1.20); Glomerular Filtration Rate >60 (60-); Glucose, Blood 106 mg/dL (70-99); Magnesium, Blood 1.7 mg/dL (1.6-2.4); Phosphorus, Blood 3.4 mg/dL (2.5-4.9); Potassium, Blood 4.4 mmol/L (3.5-5.5); Sodium, Blood 136 mmol/L (136-145)
[2021-05-20 05:52] LABS: BASOPHILS ABSOLUTE AUTO 0.06 K/mm3 (0.00-0.23); BASOPHILS PERCENT AUTO 0 % (0-2); EOSINOPHILS ABSOLUTE AUTO 0.35 K/mm3 (0.00-0.68); EOSINOPHILS PERCENT AUTO 2 % (0-6); Hematocrit 41.1 % (37.0-53.0); Hemoglobin 13.6 g/dL (13.5-17.5); IMMATURE GRAN ABSOLUTE AUTO 0.18 K/mm3 (0.00-0.10); IMMATURE GRAN PERCENT AUTO 1 % (0-1); LYMPHOCYTES ABSOLUTE AUTO 2.47 K/mm3 (0.84-5.20); LYMPHOCYTES PERCENT AUTO 16 % (21-46); MONOCYTES ABSOLUTE AUTO 1.02 K/mm3 (0.16-1.47); MONOCYTES PERCENT AUTO 7 % (4-13); Mean Corpuscular HGB 29.1 pg (26.0-34.0); Mean Corpuscular HGB Conc 33.1 g/dL (31.5-36.5); Mean Corpuscular Volume 88 fL (80-100); NEUTROPHILS ABSOLUTE AUTO 10.97 K/mm3 (1.96-9.15); NEUTROPHILS PERCENT AUTO 73 % (41-73); RDW Coefficient Variation 14.2 % (11.7-14.2); Red Blood Cell Count 4.67 M/mm3 (4.30-5.90); White Blood Cell Count 15.05 K/mm3 (4.00-11.30)
[2021-05-20 06:00] LABS: Mean Platelet Volume 11.7 fL (9.1-12.4)
[2021-05-20 06:30] LABS: Platelet Count 289 K/mm3 (150-400)
--- NOTE | 2021-05-21 04:58 | NUR ---
SHIFT SUMMARY PT A&O X4 & IN PLEASENT MOOD T/O SHIFT. PT MAINTAINED NPO STATUS T/O SHIFT. PT UP TO RECLINER @ APPROX 2330 TO ALLEVIATE LEG PAIN, PT RESTED IN BED COMFORTABLY T/O PART OF SHIFT. CALL LIGHT W/IN REACH. VSS.
--- NOTE | 2021-05-21 16:05 | NUR ---
SHIFT SUMMARY: PATIENT COMPLAINTS OF PAIN TO BACK, LEGS & ARMS TODAY, MEDICATED WITH MORPHINE, ABLE TO AMBULATE AT THE HALLWAY WITH A WALKER WITH PHYSICAL THERAPIST & TOLERATED WELL. CALLS FOR URINATION & ABLE TO MAKE NEEDS KNOWN. ABRIL TO MIDLINE ABDOMEN C/D/I, NO S/S OF INFECTION NOTED. SEEN BY DR. MARINELLI TODAY AFTER MBS, DR. MARINELLI EXPLAINED TO PT. & FAMILY THE POSSIBLE INTERVENTION FOR BETTER NUTRITION. NO NEW UNUSUALITIES NOTED. WILL CONTINUE TO MONITOR.
--- NOTE | 2021-05-21 16:17 | NUR ---
DR. MARINELLI SAID THAT SHE WILL GET DR. FROST ON BOARD FOR PEG TUBE PLACEMENT MAYBE TOMORROW.
[2021-05-21 22:09] LABS: Influenza A, PCR NEGATIVE (NEGATIVE); Influenza B, PCR NEGATIVE (NEGATIVE); Resp Syncytial Virus, PCR NEGATIVE (NEGATIVE); SARS-Cov-2 (COVID-19) PCR, MMC NEGATIVE (NEGATIVE)
--- NOTE | 2021-05-21 23:30 | NUR ---
CONTACTED DR. VERNON CONTACTED REGUARDING TELE MONITOR REPORT OF V-TACH FOR 8 BEATS. VSS. TELE REPORTS PACED @ 54 W/ UNDERLYING A-FLUTTER. PT DENIES CP, TIGHTNESS, OR SOB. AM LABS ORDERED.
--- NOTE | 2021-05-22 04:51 | NUR ---
SHIFT SUMMARY PT A&O X4 T/O SHIFT. CURRENTLY NPO DUE TO DYSPHAGIA. UP TO CHAIR FOR MOST OF SHIFT, PT STATED, " HE FEELS LIKE IT IS DAYTIME AND CAN NOT SLEEP". MIDLINE INCISION CLOSED W/ ABRIL OPEN TO AIR, CLEAN AND DRY. BT'S PRESENT IN ALL 4 Q'S. VOIDING FREQUENT SM AMOUNTS. CALL LIGHT W/IN REACH. VSS. PAIN MEDICATED PER EMAR AND REPOSITIONING.
[2021-05-22 05:04] LABS: Magnesium, Blood 1.6 mg/dL (1.6-2.4); Phosphorus, Blood 4.1 mg/dL (2.5-4.9)
--- NOTE | 2021-05-22 11:29 | NUR ---
1125 PT. TAKEN TO DAY SURGERY FOR PEG TUBE PLACEMENT.
--- NOTE | 2021-05-22 11:45 | NUR ---
History, Chart, Medications and Allergies reviewed before start of procedure. Lungs clear T/O to Auscultation. Patient confirms NPO status and agrees with scheduled surgery. Pre-Op teaching done. Pt verbalizes understanding.
--- NOTE | 2021-05-22 12:25 | NUR ---
05/22/21 1225 Harris Gaytan Bite Block Placed. See Anesthesia record. Returned from ENDO 1. History, Chart, Medications and Allergies reviewed before start of procedure. MONITOR INTACT WITH CONTINUOUS PULSE OXIMETRY AND INTERMITTENT BP.
--- NOTE | 2021-05-22 13:12 | NUR ---
1307 RECEIVED PT. FROM PACU ACCOMPANIED BY TIFFANY PATRICK, VERBAL REPORT RECEIVED THAT PT. RECEIVED SOME PROPOFOL DURING SURGERY, ANCEF GIVEN, PER DR. MARINELLI MEDS CAN BE GIVEN CRUSHED TO START TONIGHT, FEEDING CAN START TOMORROW. VERBAL REPORT READ BACK. PT. AOX4, DROWSY, PEG TUBE PLACED BELOW XIPHOID PROCESS WITH DRESSING C/D/I. PT. DENIES PAIN AT THIS TIME.
--- NOTE | 2021-05-22 14:55 | NUR ---
1455 GIVE LOVENOX NOW IT WAS HELD BEFORE PATIENT'S PROCEDURE ( PEG TUBE PLACEMENT).
--- NOTE | 2021-05-22 15:11 | NUR ---
1445 RECEIVED ORDER VIA [employer] FROM DIETITIAN TO LOWER RATE OF CLINIMIX TO 55 ML/HR. UNTIL FINISHED, THEN DISCONTINUE.
--- NOTE | 2021-05-22 17:29 | NUR ---
CURRENTLY IS TALKING TO PT'S SPOUSE & FAMILY RE: PEG TUBE MANAGEMENT & NUTRITION, A LOT OF QUESTIONS WERE ASKED & DR. FROST TRIES TO ANSWER ALL.
[2021-05-23 06:50] LABS: Triglycerides 131 mg/dL (30-160)
--- NOTE | 2021-05-23 08:11 | NUR ---
SUMMARY PT TO START FEEDINGS TODAY.NAUSEA X 1 LAST NIGHT.UP IN CHAIR AT BEDSIDE AND BACK TO BED THIS AM.
--- NOTE | 2021-05-23 19:09 | NUR ---
SHIFT SUMMARY PT POD #1 FOR PEG TUBE PLACEMENT AND POD #14 FOR TOTAL COLECTOMY. TOLERATING 1 CAN OF BOLUS FEEDS AT THIS TIME. PT HAS BEEN HAVING DIARRHEA AFTER BOLUS FEEDS BUT DENIES ABD DISCOMFORT OR NAUSEA. PT TO DC TO [facility] TOMORROW. VSS. WILL REPORT TO KATY PATRICK.
--- NOTE | 2021-05-24 07:39 | NUR ---
SHIFT SUMMARY POD2 PEG TUBE PLACEMENT, C/O CHRONIC PAIN IN LEGS MEDICATED PER EMAR, 1 PERSON ASSIST TO TRANSFER, TOLERATES MEDICATIONS/FLUIDS ADMINISTERED THROUGH PEG TUBE. REPORTS SOME REGRETS ON GETTING PEG TUBE PLACE, CONCERNED ABOUT MANAGING IT AFTER DISCHARGE, PT EDUCATED AND REASSURED THAT PEG TUBE CARE IS SOMETHING HE IS CAPABLE OF DOING BUT ASSISTANCE IN TEACHING HOME CARE IS AVAILABLE. NO ACUTE EVENTS THIS SHIFT, CALL LIGHT IN REACH, REPORT GIVEN TO DAY RN.
[2021-05-24 10:17] LABS: Influenza A, PCR NEGATIVE (NEGATIVE); Influenza B, PCR NEGATIVE (NEGATIVE); Resp Syncytial Virus, PCR NEGATIVE (NEGATIVE); SARS-Cov-2 (COVID-19) PCR, MMC NEGATIVE (NEGATIVE)
--- NOTE | 2021-05-24 11:15 | NUR ---
DISCHARGE SUMMARY PATIENT ALERT AND ORIENTED. TOLERATING PEG TUBE FEEDINGS. MIDLINE ABD INCISION C/D/I. PEG TUBE DRESSING IN PLACE. DISCHARGED TO THE [facility]. CALLED SNF RN WITH REPORT ON PATIENT STATUS, RECENT VITAL SIGNS, MEDICATIONS, MEDICAL HISTORY, AND NEED FOR REHAB. COVID TEST NEGATIVE. ABRIL REMOVED FROM MIDLINE AND REPLACED WITH STERISTRIPS. PICC DC'D WNL BY TABLEMAN. PATIENT LEFT UNIT VIA WHEELCHAIR FOR SNF AT 1115.
--- NOTE | 2021-05-27 08:15 | NUR ---
Per Dr. Quiroz discharge appropriate for 05/24/21. Spoke with patient and his Elizabeth and they do not oppose discharge. Patient transported to [facility]. Transportation arranged through [facility] pickle maker time 10:45 am. Coordinated discharge time with RN and Dr. Quiroz. Patient notes, peg tube user support analyst recommendations, medication reconciliation, and discharge orders emailed to [facility]. DME: Wheelchair ordered through [facility]; delivered to [facility] Patient and family understand length of stay at SNF is determined by patient's health and progress. Family reassured they may contact [facility] for questions concerning medication management or patient's health care needs and that [facility] nursing staff will contact patient's PCP with any medical or medication needs. SNF will coordinate follow up visit with [facility] (required within 7 days of discharge). No barriers to discharge.
== END 2021-05-24 11:30 | DRG 853 ==
LOC: ER 15:47 → SURS 20:05 → MEDS 20:05 → ERHOLD 20:05 → MEDS 05-10 01:23 → SURS 05-10 17:50
PROVIDERS: Family Medicine; Hospitalist; Internal Medicine; Physician Assistant; Surgery; ADMIT Family Medicine
PROC: 02HV33Z Insertion of Infusion Device into Superior Vena Cava, Percutaneous Approach (ICD-10-PCS; 2021-05-09)
PROC: 0DBU0ZZ Excision of Omentum, Open Approach (ICD-10-PCS; 2021-05-10)
PROC: 0DTF0ZZ Resection of Right Large Intestine, Open Approach (ICD-10-PCS; 2021-05-10 09:30)
PROC: 0DH63UZ Insertion of Feeding Device into Stomach, Percutaneous Approach (ICD-10-PCS; principal; 2021-05-23)
PROC: 3E0G76Z Introduction of Nutritional Substance into Upper GI, Via Natural or Artificial Opening (ICD-10-PCS; 2021-05-23)
DX: A41.9 Sepsis, unspecified organism (principal); J96.01 Acute respiratory failure with hypoxia; G93.41 Metabolic encephalopathy; N17.9 Acute kidney failure, unspecified; N13.8 Other obstructive and reflux uropathy; C18.0 Malignant neoplasm of cecum; E87.2 Acidosis; G89.29 Other chronic pain; M54.9 Dorsalgia, unspecified; I73.9 Peripheral vascular disease, unspecified; I11.0 Hypertensive heart disease with heart failure; I25.10 Atherosclerotic heart disease of native coronary artery without angina pectoris; J44.9 Chronic obstructive pulmonary disease, unspecified; Z20.822 Contact with and (suspected) exposure to COVID-19; E83.42 Hypomagnesemia; E78.00 Pure hypercholesterolemia, unspecified; R65.20 Severe sepsis without septic shock; E78.5 Hyperlipidemia, unspecified; G20 Parkinson's disease; K52.9 Noninfective gastroenteritis and colitis, unspecified; I49.5 Sick sinus syndrome; R13.10 Dysphagia, unspecified; N40.1 Benign prostatic hyperplasia with lower urinary tract symptoms; I48.91 Unspecified atrial fibrillation; Z86.73 Personal history of transient ischemic attack (TIA), and cerebral infarction without residual deficits; Z98.890 Other specified postprocedural states; Z95.5 Presence of coronary angioplasty implant and graft; I25.2 Old myocardial infarction; Z95.0 Presence of cardiac pacemaker; Z90.89 Acquired absence of other organs; Z90.79 Acquired absence of other genital organ(s); Z79.01 Long term (current) use of anticoagulants; Z28.82 Immunization not carried out because of caregiver refusal
CPT/HCPCS: 0241U; 36415; 36600; 71045; 71046; 71250; 74019; 74176; 74177; 74230; 80048; 80053; 80069; 82378; 82803; 83605; 83690; 83735; 84100; 84478; 84484; 85025; 85610; 87040; 88300; 88307; 88309; 92526; 92610; 92611; 93005; 93010; 94760; 96365; 96366; 96375; 97110; 97110-CQ; 97116; 97162; 97166; 97530; 97530-CQ; 97535; 99285-25; A9270; C9113; J0690; J0780; J1100; J1650; J1940; J2001; J2060; J2250; J2270; J2310; J2405; J2543; J2704; J2710; J3010; J3411; J3475; J3480; J7030; J7040; J7042; J7120; Q9967

== ENCOUNTER 2022-02-25 10:48 | Inpatient (IN) | payer MEDICARE, OTHER ==
[~2022-02-25] VITALS: Ht 172.7 cm; Wt 72.6 kg
[~2022-02-25 10:48] MED LIST changes: +CIPR500 PO; +TRAM50 PO; +XARELTO20 MG PO
[2022-02-25 11:16] LABS: BASOPHILS ABSOLUTE AUTO 0.05 K/mm3 (0.00-0.23); BASOPHILS PERCENT AUTO 0 % (0-2); EOSINOPHILS ABSOLUTE AUTO 0.08 K/mm3 (0.00-0.68); EOSINOPHILS PERCENT AUTO 1 % (0-6); Hematocrit 43.6 % (37.0-53.0); IMMATURE GRAN ABSOLUTE AUTO 0.05 K/mm3 (0.00-0.10); IMMATURE GRAN PERCENT AUTO 0 % (0-1); LYMPHOCYTES ABSOLUTE AUTO 1.57 K/mm3 (0.84-5.20); LYMPHOCYTES PERCENT AUTO 14 % (21-46); MONOCYTES ABSOLUTE AUTO 0.79 K/mm3 (0.16-1.47); MONOCYTES PERCENT AUTO 7 % (4-13); Mean Corpuscular HGB 28.6 pg (26.0-34.0); Mean Corpuscular HGB Conc 32.1 g/dL (31.5-36.5); Mean Corpuscular Volume 89 fL (80-100); Mean Platelet Volume 10.7 fL (9.1-12.4); NEUTROPHILS ABSOLUTE AUTO 8.58 K/mm3 (1.96-9.15); NEUTROPHILS PERCENT AUTO 77 % (41-73); Platelet Count 265 K/mm3 (150-400); RDW Coefficient Variation 17.9 % (11.7-14.2); RDW Standard Deviation 58.2 fL (35.1-46.3); Red Blood Cell Count 4.89 M/mm3 (4.30-5.90); White Blood Cell Count 11.12 K/mm3 (4.00-11.30)
[2022-02-25 11:29] LABS: Source, Urine Foley catheter
[2022-02-25 11:35] LABS: Albumin, Blood 2.9 g/dL (3.4-5.0); Albumin/Globulin Ratio 0.7 (0.8-1.8); Bun/Creatinine Ratio 36.2 (12.0-20.0); Calcium, Blood 9.6 mg/dL (8.5-10.1); Creatinine, Blood 1.05 mg/dL (0.60-1.20); Globulin, Blood 4.1 g/dL (2.2-4.0); Potassium, Blood 4.1 mmol/L (3.5-5.5)
[2022-02-25 11:38] LABS: Appearance, Urine Clear (Clear); Bilirubin, Urine Neg (Neg); Blood, Urine Neg (Neg); Color, Urine Yellow (P-Yellow); Glucose Qualitative, Urine Neg (Neg); Ketones, Urine Neg (Neg); Leukocyte Esterase, Urine Neg (Neg); Nitrite, Urine Neg (Neg); Protein, Urine 1+ (Neg); Specific Gravity, Urine 1.015 (1.003-1.022); Urobilinogen, Urine 1+ (Normal)
--- NOTE | 2022-02-25 15:00 | NUR ---
ARRIVAL PT ARRIVED TO UNIT AT 1500 SLIDE FROM RNEY TO BED. HE REPORTS THAT HIS PAIN IS A 5/10 AT THIS TIME BUT TOLERABLE. LEO IS PATENT AND DRAINING. DENIES NAUSEA. CALL LIGHT IN REACH PT ORIENTED TO UNIT. PT DENIES SHORTNESS OF BREATH, ASKED THIS RN TO TURN OF THE LIGHT SO HE COULD TRY AND NAP.
--- NOTE | 2022-02-25 16:08 | NUR ---
PT HAD VERY SMALL BOWEL MOVEMENT AFTER ENEMA. ONE SMALL HARD PIECE OF STOOL. PATIENT STATES THAT IT FEELS "LIKE MY BUTT IS TEARING OPEN FROM THE INSIDE" HE REPORTS THIS PAIN IS 10/10 WHEN IT OCCURS. HE FINDS IT DIFFICULT TO TRY AND PASS STOOL BECAUSE OF THIS. MEDICATED PER EMAR FOR PAIN, PT REPORTS RELIEF.
--- NOTE | 2022-02-25 17:43 | NUR ---
mineral oil enema and urojet administered. pt reports still hurts when stool tries to pass. he states it is tolerable outside of the occasional spasm of pain.
--- NOTE | 2022-02-26 05:22 | NUR ---
SHIFT SUMMARY PT HAS HAD 6 BM'S OVERNIGHT SINCE RECEIVING TWO EMEMA'S YESTERDAY AFTERNOON. BOWEL MOVEMENTS STARTED SMALL/MEDIUM FORMED AND HAS PROGESSED TO LARGE LIQUID STOOLS, PT IS INCONTINENT. ABD IS NO LONGER FIRM IT WAS COMPARED TO MY INITIAL ASSESSMENT. PAIN IN ABD HAS IMPROVED SINCE HAVING BM'S, AND PT REPORTING LESS PAIN. MEDICATED X1 FOR PAIN PER EMAR WITH EFFECT. PT HAS NOT HAD ANY N/V THIS SHIFT. IVF INFUSING. LEO PATENT AND DRAINING. PT HASN'T RESTED MUCH THIS SHIFT DUE TO FREQUENT BM'S T/O THE NIGHT. NO OTHER CHANGES TO REPORT.
[2022-02-26 07:44] LABS: BASOPHILS ABSOLUTE AUTO 0.05 K/mm3 (0.00-0.23); BASOPHILS PERCENT AUTO 0 % (0-2); EOSINOPHILS ABSOLUTE AUTO 0.19 K/mm3 (0.00-0.68); EOSINOPHILS PERCENT AUTO 2 % (0-6); Hematocrit 40.6 % (37.0-53.0); Hemoglobin 13.1 g/dL (13.5-17.5); IMMATURE GRAN ABSOLUTE AUTO 0.08 K/mm3 (0.00-0.10); IMMATURE GRAN PERCENT AUTO 1 % (0-1); LYMPHOCYTES ABSOLUTE AUTO 1.18 K/mm3 (0.84-5.20); LYMPHOCYTES PERCENT AUTO 10 % (21-46); MONOCYTES ABSOLUTE AUTO 0.85 K/mm3 (0.16-1.47); MONOCYTES PERCENT AUTO 7 % (4-13); Mean Corpuscular HGB 28.9 pg (26.0-34.0); Mean Corpuscular HGB Conc 32.3 g/dL (31.5-36.5); Mean Corpuscular Volume 90 fL (80-100); NEUTROPHILS ABSOLUTE AUTO 9.06 K/mm3 (1.96-9.15); NEUTROPHILS PERCENT AUTO 80 % (41-73); Platelet Count 250 K/mm3 (150-400); RDW Standard Deviation 59.1 fL (35.1-46.3); Red Blood Cell Count 4.53 M/mm3 (4.30-5.90); White Blood Cell Count 11.41 K/mm3 (4.00-11.30)
[2022-02-26 08:02] LABS: Albumin, Blood 2.8 g/dL (3.4-5.0); Anion Gap 8 mmol/L (6-16); Blood Urea Nitrogen 29 mg/dL (8-24); Bun/Creatinine Ratio 28.2 (12.0-20.0); CO2, Blood 22 mmol/L (21-32); Calcium, Blood 9.5 mg/dL (8.5-10.1); Chloride, Blood 109 mmol/L (98-108); Creatinine, Blood 1.03 mg/dL (0.60-1.20); Glomerular Filtration Rate 71 (60-); Glucose, Blood 74 mg/dL (70-99); Magnesium, Blood 1.2 mg/dL (1.6-2.4); Potassium, Blood 3.9 mmol/L (3.5-5.5); Sodium, Blood 139 mmol/L (136-145)
--- NOTE | 2022-02-26 17:09 | NUR ---
SUMMARY:NO ACUTE CHANGE TODAY. VSS, A/O, PAIUTE-SHOSHONE. PT HAS TOLERATED CLEAR LIQ DIET TODAY, NO NAUSEA OR EMESIS AND HAS HAD SEVERAL MORE LIQ BM'S. PT HAS COMPLAINED OF ABD PAIN INTERMITTANTLY, MEDICATED PER EMAR. PT SLEPT AND RESTED QUITE A BIT TODAY STATING HE WAS TIRED FROM NOT GETTING MUCH SLEEP LAST NIGHT. PT DID WORK WITH THERAPY AND WALKED IN ROOM SOME WITH FWW. NO ACUTE CONCERNS, WILL PASS REPORT TO KATY PATRICK.
[2022-02-27 04:52] LABS: BASOPHILS ABSOLUTE AUTO 0.03 K/mm3 (0.00-0.23); BASOPHILS PERCENT AUTO 0 % (0-2); EOSINOPHILS ABSOLUTE AUTO 0.02 K/mm3 (0.00-0.68); EOSINOPHILS PERCENT AUTO 0 % (0-6); Hematocrit 44.7 % (37.0-53.0); Hemoglobin 14.3 g/dL (13.5-17.5); IMMATURE GRAN ABSOLUTE AUTO 0.08 K/mm3 (0.00-0.10); IMMATURE GRAN PERCENT AUTO 0 % (0-1); LYMPHOCYTES PERCENT AUTO 4 % (21-46); MONOCYTES ABSOLUTE AUTO 0.92 K/mm3 (0.16-1.47); MONOCYTES PERCENT AUTO 5 % (4-13); Mean Corpuscular HGB 28.3 pg (26.0-34.0); Mean Corpuscular Volume 89 fL (80-100); Mean Platelet Volume 10.6 fL (9.1-12.4); NEUTROPHILS ABSOLUTE AUTO 17.11 K/mm3 (1.96-9.15); NEUTROPHILS PERCENT AUTO 91 % (41-73); Platelet Count 280 K/mm3 (150-400); RDW Coefficient Variation 18.2 % (11.7-14.2); RDW Standard Deviation 58.1 fL (35.1-46.3); Red Blood Cell Count 5.05 M/mm3 (4.30-5.90); White Blood Cell Count 18.86 K/mm3 (4.00-11.30)
[2022-02-27 05:23] LABS: Albumin, Blood 2.7 g/dL (3.4-5.0); Anion Gap 9 mmol/L (6-16); Blood Urea Nitrogen 20 mg/dL (8-24); Bun/Creatinine Ratio 22.6 (12.0-20.0); CO2, Blood 24 mmol/L (21-32); Calcium, Blood 9.3 mg/dL (8.5-10.1); Chloride, Blood 107 mmol/L (98-108); Creatinine, Blood 0.88 mg/dL (0.60-1.20); Glomerular Filtration Rate 84 (60-); Glucose, Blood 132 mg/dL (70-99); Magnesium, Blood 2.3 mg/dL (1.6-2.4); Phosphorus, Blood 2.6 mg/dL (2.5-4.9); Potassium, Blood 3.5 mmol/L (3.5-5.5); Sodium, Blood 140 mmol/L (136-145)
--- NOTE | 2022-02-27 06:37 | NUR ---
SHIFT SUMMARY PT HAS RESTED OFF AND T/O THE SHIFT, HE HAS BEEN MORE UNCOMFORTABLE TONIGHT THAN HE WAS YESTERDAY. MORE ABD DISCOMFORT, NAUSEA AND VOMITTING AFTER DIET WAS ADVANCED YESTERDAY. PT MEDICATED FOR PAIN AND NAUSEA FREQUENTLY T/O THE SHIFT. AT THE TIME OF THIS NOTE PT REPORTS THAT ABD PAIN HAS IMPROVED AND NAUSEA IS SOMEWHAT IMPROVED BUT STILL THERE. PT IS REFUSING NG TUBE PLACEMENT AT THIS TIME, HE STATES THAT HE DOESNT WANT ONE. PT CONTINUES TO HAVE LOOSE STOOLS. VITALS ARE STABLE. A/OX4. PT IS NOT TAKING ANY PO INTAKE AT THIS TIME D/T N/V. BED IN LOWEST POSITION, CALL LIGHT WITHIN REACH. REACH.
--- NOTE | 2022-02-27 17:54 | NUR ---
Met with Dr. Owens and Dr Montes today at the bedside. Pt's and sister also present for the meeting. Pt was informed of his options for treatment, and ultimately decided on comfort care, and then likely home with hospice if pt's is able. Pt's son Fausto will be here via telephone conference tomorrow.
--- NOTE | 2022-02-27 19:46 | NUR ---
SHIFT SUMMARY PT HAS CONTINUED TO HAVE NAUSEA T/O THE DAY, NAUSEA MANAGED WITH REGLAN AND ZOFRAN. PAIN MANAGED WITH DILAUIDID AND FENTANYL. PT WAS TRANSITIONED TO COMFORT CARE TODAY. HIS FAMILY VISITED. PT AND FAMILY BOTH EMOTIONAL AT TIMES. THERAPEUTIC LISTENING PROVIDED. SUPPORT AND EDUCATION PROVIDED BY MEDICAL STAFF, PALLIATIVE CARE RN AND THIS RN. REPORT GIVEN TO PRASHANT PATRICK.
--- NOTE | 2022-02-27 21:49 | NUR ---
pt restng on l side.denies need.
--- NOTE | 2022-02-28 08:15 | NUR ---
PT RESTING AT THIS TIME, DENIES ANY NEEDS AND WOULD LIKE TO SLEEP. DECLINED CLEAR LIQ TRAY.
--- NOTE | 2022-02-28 14:17 | NUR ---
PT WORKED WITH THERAPY AT 1400, SEE ASSESSMENT
--- NOTE | 2022-02-28 17:13 | NUR ---
PT FAMILY, CLEANING AND MAINTENANCE WORKER DR. SANTOSH SAPP, THIS RN AND PROJECT MANAGER PROCESS DEVELOPMENT BRAIN IN ROOM AT ABOUT 1430 TO DISCUSS HOME HOSPICE CARE. PLAN IS TO DC TO HOME HOSPICE CARE TOMORROW.
--- NOTE | 2022-02-28 17:18 | NUR ---
SUMMARY: COMFORT CARE PT. NO ACUTE CHANGE TODAY. PT ABLE TO MAKE NEEDS KNOWN AND RESPONDS TO QUESTIONS, USES CALL LIGHT. NO BM'S TODAY. URINE CATH DRAINING. PT POSITIONED FOR COMFORT, DENIED REPOSITONING AT TIMES. CREAM PLACED TO RECTAL AREA FOR SMALL AMT OF REDNESS, PT TURNS AND REPOSITIONS SELF WELL. TENDS TO FAVOR HIS LEFT SIDE, SO TURNING OVER TO R SIDE ENCOURAGED. EXTRA PILLOWS ADDED TO BED. PT REPORTED INTERMITTANT PAIN AND NAUSEA, MEDICATED PER EMAR. PT APPEARS MORE COMFORTABLE AFTER MEDICATED. TAKING OCCASIONAL SIPS OF WATER OR ICE CHIPS. FAMILY IS AWARE OF PLAN FOR DC TO HOME HOSPICE TOMORROW. PLAN TO PASS REPORT TO KATY RN.
--- NOTE | 2022-03-01 06:24 | NUR ---
SHIFT SUMMARY A/O X4- BEDREST THROUGHOUT THE NIGHT, CONTINUED COMFORT CARE STATUS. NO VITALS TAKEN THROUGHOUT THE NIGHT. PT REPORTS HIS PAIN BEING BETTER MANAGED THIS EVENING. VERY PLEASANT AND COOPERATIVE W/ CARE. CALL LIGHT IN REACH. LEO DRAINING TO GRAVITY- WILL REPORT TO ONCOMING RN.
[2022-03-01] MEDS ORDERED: BIOTENE PO (09:51)
--- NOTE | 2022-03-01 11:10 | NUR ---
07-RECVD REPORT FROM PREVIOUS SHIFT RN, PT SLEEPING IN BED, BED IN LOWEST POSITION, BED RAILS UP X 2. 0900-PT'S SON IN TO VISIT. THIS RN PROVIDED EDUCATION TO PT AND SON REGARDING DISCHARGE AND HOSPICE. PT AND SON RELAY THEY UNDERSTAND INSTRUCTIONS. DR SANTOSH GUSMAN ON PT. 1040-PROVIDED PT AND SON DISCHARGE INSTRUCTIONS, PROVIDED PRINTED MATERIAL AND PHONE NUMBER OF HOUSEKEEPER MANAGER. PT AND SON WILL CALL HOUSEKEEPER MANAGER TO NOTIFY ABOUT RETURN HOME TIME. PROVIDED PT WITH ANALGESIA PER JUL. REMOVE PERIPHERAL IV WNL, PT'S SON TRANSFERRED PT'S BELONGINGS TO VEHICLE. TRANSFERRED PT VIA WHEELCHAIR TO AWAITING VEHICLE.
== END 2022-03-01 11:14 | disposition hospice, home (50) | DRG 389 ==
LOC: ER 10:48 → SURS 12:55
PROVIDERS: Emergency Medicine; ADMIT Family Medicine
DX: K56.600 Partial intestinal obstruction, unspecified as to cause (principal); C18.9 Malignant neoplasm of colon, unspecified; C78.6 Secondary malignant neoplasm of retroperitoneum and peritoneum; K60.2 Anal fissure, unspecified; M54.50 Low back pain, unspecified; G89.29 Other chronic pain; I73.9 Peripheral vascular disease, unspecified; Z66 Do not resuscitate; I10 Essential (primary) hypertension; Z51.5 Encounter for palliative care; I25.10 Atherosclerotic heart disease of native coronary artery without angina pectoris; J44.9 Chronic obstructive pulmonary disease, unspecified; E78.00 Pure hypercholesterolemia, unspecified; I48.91 Unspecified atrial fibrillation; F17.210 Nicotine dependence, cigarettes, uncomplicated; G20 Parkinson's disease; R33.8 Other retention of urine; N40.1 Benign prostatic hyperplasia with lower urinary tract symptoms; K56.41 Fecal impaction; Z79.899 Other long term (current) drug therapy; Z92.21 Personal history of antineoplastic chemotherapy; Z90.49 Acquired absence of other specified parts of digestive tract; Z79.02 Long term (current) use of antithrombotics/antiplatelets; Z79.01 Long term (current) use of anticoagulants; I25.2 Old myocardial infarction; Z90.79 Acquired absence of other genital organ(s); Z79.2 Long term (current) use of antibiotics; Z79.891 Long term (current) use of opiate analgesic; Z98.890 Other specified postprocedural states; Z86.73 Personal history of transient ischemic attack (TIA), and cerebral infarction without residual deficits; Z95.5 Presence of coronary angioplasty implant and graft; Z95.0 Presence of cardiac pacemaker
CPT/HCPCS: 36415; 51702; 51798; 74019; 74177; 80053; 80069; 83735; 85025; 96374-59; 96375-59; 96376-59; 97116; 97162; 97165; 97535; 99285-25; A9270; J1170; J1650; J2405; J2765; J3010; J3475; J7030; Q9967